=== PATIENT | female | born 1980 | race Caucasian/White ===

== ENCOUNTER 2023-09-12 17:32 | Inpatient (IN) | payer BC, SELFPAY ==
[2023-09-12 14:31] VITALS: BP 148/90
[2023-09-12 14:56] LABS: % Basophils 0.2 % (0-2); % Eosinophils 0.2 % (0-6); % Immature Granulocytes 0.3 % (0-0.5); % Lymphocytes 17.3 % (20.5-51.1); % Monocytes 7.4 % (1.7-9.3); % Neutrophils 74.6 % (42.2-75.2); Absolute Monocytes 0.4 10^3/uL (0.1-0.6); Absolute Neutrophils 4.4 10^3/uL (1.4-6.5); Hematocrit 40.7 % (37.0-47.0); Hemoglobin 14.6 g/dL (12.0-16.0); Mean Corp Hgb Conc. 35.9 g/dL (33.0-37.0); Mean Corpuscular Volume 91.9 fL (81.0-99.0); Mean Platelet Volume 10.3 fL (7.4-10.4); Nucleated Red Blood Cells % 0 %; Platelet Count 212 10^3/uL (130-400); Red Blood Cell Count 4.43 10^6/uL (4.20-5.40); Red Cell Dist. Width 12.7 % (11.5-14.5)
[2023-09-12 15:07] LABS: HCG, Serum Qualitative Screen Negative
[2023-09-12 15:25] LABS: AST (SGOT) 411 U/L (14-36); Albumin 4.4 g/dl (3.5-5.0); Alkaline Phosphatase 207 U/L (38-126); Blood Urea Nitrogen 8 mg/dl (7-17); Calcium 9.5 mg/dl (8.4-10.2); Carbon Dioxide 21 mmol/L (22-30); Chloride 106 mmol/L (98-107); Glucose 138 mg/dl (70-99); Lipase 444 U/L (23-300); Potassium 3.6 mmol/L (3.5-5.1); Sodium 136 mmol/L (135-145); Total Bilirubin 4.5 mg/dl (0.2-1.3); Total Protein 7.2 g/dl (6.3-8.2); eGFR > 60.00
[2023-09-12 15:35] LABS: ALT (SGPT) 1164 U/L (0-35)
--- NOTE | 2023-09-12 15:51 | ED.GENMED ---
History of Present Illness
General
Chief Complaint: Abdominal Pain
Source: patient
Time Seen by Provider: 09/12/23 15:37
Travel History
Have you had any contact with someone who has COVID-19?: No
Do you have any symptoms of coronavirus? Fever > 100 degrees, chills, cough, shortness of breath, sore throat, loss of taste or smell, muscle aches, or headache?: No
History of Present Illness
History of Present Illness:
42-year-old female with past medical history of factor V Leiden deficiency, lipidemia, status post cholecystectomy presenting to the emergency department at request of primary care provider who sent patient to the emergency department for continued
abdominal pain this past Tuesday with symptoms persisting throughout the weekend associated with decreased p.o. intake to solids and liquids, persistent nausea and generally feeling unwell. Patient describes the pain to be a 10 out of 10,
epigastric, radiating into her back has not had any relief with aibq-ccm-wjpmdta measures. Patient states that she has been so nauseous she has been unable to take her usual home medications including the Eliquis she takes for her factor V
deficiency. Patient was at this hospital a few weeks ago with similar and symptoms were thought to be related to gastritis ultimately sent home. She denies any fevers, chills, rigors. She does note that she was in [place] over the weekend
visiting her mother but denies any alcohol intake.
Past History
Past History
ED Past Medical History: Hypercholesterolemia, Psychiatric (anxiety on Lexapro) and Other (Factor V Leiden on eliquis)
ED Past Surgical History: Appendectomy, Cholecystectomy and Tonsilectomy
Social History
Tobacco: Non-smoker
Alcohol: None
Drug: None
Personal:
Living: with family
Review of Systems
Review of Systems
All Other Systems: ROS reviewed and negative except as documented in HPI and ROS
Phy Exam
Physical Exam
Physical Exam:
GENERAL: Alert , Tearful and appears in significant amount of pain
EYE: clear conjunctiva b/l
HEAD: NCAT
ENT: o/p clr, mmm.
CARDIAC: Regular rate and rhythm .
LUNGS: Clear breath sounds bilaterally, no acute respiratory distress, no wheezes/rales/rhonchi
ABDOMEN: Soft, Significant tenderness within the epigastrium, normoactive bowel sounds, (+)guarding with palpation of epigastrum,
NEUROLOGICAL: Alert and oriented
SKIN: Warm and dry, skin intact.
MUSCULOSKELETAL: No edema, well perfused.
PSYCH: Normal and appropriate interaction.
Scores
Heart Failure Risk
Heart Failure Risk Score: Not Applicable
Heart Score for Chest Pain Patients
STEMI patient?: Not applicable
Withdrawal Assessment of Alcohol
Withdrawal Assessment Completed?: Not applicable
Course
Orders/Labs/Results
Orders:
Orders
09/12/23 14:34
Electrocardiogram (*1) Urgent
Reason for Study: Abdominal Pain
EKG- Treatment ONCE
Test Result ONCE
09/12/23 14:40
Comprehensive Metabolic Panel Urgent
Direct Bilirubin Urgent
Comment: ADD ON
HCG, Serum Qualitative Screen Urgent
Lipase Urgent
09/12/23 14:41
Complete Blood Count/With Diff Urgent
09/12/23 15:40
US Abdomen Complete/Upper Urgent
Comment:
Reason For Exam: concern for gallstone pancreatitis, abd pain
09/12/23 15:45
HYDROmorphone [Dilaudid] 1 mg IV NOW STA
Ondansetron Injectable [Zofran] 4 mg IV NOW STA
09/12/23 15:52
Piperacillin/Tazo 3.375 Gram [Zosyn] 3.375 gram in 50 ml IV NOW
09/12/23 15:53
Type+Screen Urgent
PTT Urgent
Prothrombin Time Urgent
09/12/23 16:05
GASTROINTESTINAL CONSULT Routine
Consulting Provider: Danny Brock
Was physician already notified: Yes
Reason for consult: elevated LFTs
09/12/23 16:33
Add On- LAB Routine
Tests Added?: direct bilirubin
09/12/23 16:36
Admit/Transfer Patient As Directed
Co-Sign Provider:
Level of Care: Inpatient admission
Assign to:: Medical/Surgical
Physician / Group: [facility]
Diagnosis: elevated LFTs
Reason for Hospitalization: elevated LFTs
Expected length of stay greater than two midnights?: Yes
ELOS- Estimated Length of Stay in days: 3
I certify the patient meets the requirements for IP care: Yes
09/12/23 16:42
Code Status As Directed
Resuscitation Status: Full Code
09/12/23 17:06
MRI Abdomen [MR Abdomen W/o & W Contrast] Routine
Comment:
Reason For Exam: with mrcp
Recent pill cam endoscopy?: No
09/12/23 17:36
0.9% Sodium Chloride 1000 ml [Nss] 1,000 ml IV 125 mls/hr
HYDROmorphone [Dilaudid] 1 mg IV Q3HPRN PRN
09/12/23 17:36
MR Abdomen W/o & W Contrast Routine
Comment:
Reason For Exam: choledocholithiasis
Recent pill cam endoscopy?: No
Activity As Directed
Activity Level: With Assistance
Vital Signs As Directed
Frequency: Per unit guidelines
DX Deep Vein Thrombosis Video Routine
09/12/23 18:00
Enoxaparin Sodium [Lovenox] 40 mg SC QPM
09/12/23 22:00
Ampicillin/Sulbactam 3 G [Unasyn] 3 gm 0.9% Sodium Chloride 100 ml [Nss] 100 ml IV Q6H
09/13/23 Breakfast
NPO
Allow oral meds: Yes
Allow clear liquids: Sips of Clears
Complete Blood Count/No Diff IN AM
Comprehensive Metabolic Panel IN AM
09/14/23 06:00
Complete Blood Count/No Diff IN AM
Comprehensive Metabolic Panel IN AM
09/15/23 06:00
Complete Blood Count/No Diff IN AM
Comprehensive Metabolic Panel IN AM
09/16/23 06:00
Complete Blood Count/No Diff IN AM
Comprehensive Metabolic Panel IN AM
09/17/23 06:00
Complete Blood Count/No Diff IN AM
Comprehensive Metabolic Panel IN AM
09/18/23 06:00
Complete Blood Count/No Diff IN AM
Comprehensive Metabolic Panel IN AM
09/19/23 06:00
Complete Blood Count/No Diff IN AM
Comprehensive Metabolic Panel IN AM
09/20/23 06:00
Comprehensive Metabolic Panel IN AM
09/21/23 06:00
Comprehensive Metabolic Panel IN AM
09/22/23 06:00
Comprehensive Metabolic Panel IN AM
09/23/23 06:00
Comprehensive Metabolic Panel IN AM
09/24/23 06:00
Comprehensive Metabolic Panel IN AM
09/25/23 06:00
Comprehensive Metabolic Panel IN AM
09/26/23 06:00
Comprehensive Metabolic Panel IN AM
09/27/23 06:00
Comprehensive Metabolic Panel IN AM
09/28/23 06:00
Comprehensive Metabolic Panel IN AM
09/29/23 06:00
Comprehensive Metabolic Panel IN AM
09/30/23 06:00
Comprehensive Metabolic Panel IN AM
10/01/23 06:00
Comprehensive Metabolic Panel IN AM
10/02/23 06:00
Comprehensive Metabolic Panel IN AM
10/03/23 06:00
Comprehensive Metabolic Panel IN AM
10/04/23 06:00
Comprehensive Metabolic Panel IN AM
10/05/23 06:00
Comprehensive Metabolic Panel IN AM
10/06/23 06:00
Comprehensive Metabolic Panel IN AM
10/07/23 06:00
Comprehensive Metabolic Panel IN AM
10/08/23 06:00
Comprehensive Metabolic Panel IN AM
10/09/23 06:00
Comprehensive Metabolic Panel IN AM
10/10/23 06:00
Comprehensive Metabolic Panel IN AM
10/11/23 06:00
Comprehensive Metabolic Panel IN AM
10/12/23 06:00
Comprehensive Metabolic Panel IN AM
10/13/23 06:00
Comprehensive Metabolic Panel IN AM
10/14/23 06:00
Comprehensive Metabolic Panel IN AM
10/15/23 06:00
Comprehensive Metabolic Panel IN AM
10/16/23 06:00
Comprehensive Metabolic Panel IN AM
10/17/23 06:00
Comprehensive Metabolic Panel IN AM
10/18/23 06:00
Comprehensive Metabolic Panel IN AM
10/19/23 06:00
Comprehensive Metabolic Panel IN AM
10/20/23 06:00
Comprehensive Metabolic Panel IN AM
10/21/23 06:00
Comprehensive Metabolic Panel IN AM
10/22/23 06:00
Comprehensive Metabolic Panel IN AM
10/23/23 06:00
Comprehensive Metabolic Panel IN AM
10/24/23 06:00
Comprehensive Metabolic Panel IN AM
10/25/23 06:00
Comprehensive Metabolic Panel IN AM
10/26/23 06:00
Comprehensive Metabolic Panel IN AM
10/27/23 06:00
Comprehensive Metabolic Panel IN AM
10/28/23 06:00
Comprehensive Metabolic Panel IN AM
10/29/23 06:00
Comprehensive Metabolic Panel IN AM
10/30/23 06:00
Comprehensive Metabolic Panel IN AM
10/31/23 06:00
Comprehensive Metabolic Panel IN AM
11/01/23 06:00
Comprehensive Metabolic Panel IN AM
11/02/23 06:00
Comprehensive Metabolic Panel IN AM
11/03/23 06:00
Comprehensive Metabolic Panel IN AM
11/04/23 06:00
Comprehensive Metabolic Panel IN AM
11/05/23 06:00
Comprehensive Metabolic Panel IN AM
11/06/23 06:00
Comprehensive Metabolic Panel IN AM
11/07/23 06:00
Comprehensive Metabolic Panel IN AM
11/08/23 06:00
Comprehensive Metabolic Panel IN AM
11/09/23 06:00
Comprehensive Metabolic Panel IN AM
11/10/23 06:00
Comprehensive Metabolic Panel IN AM
11/11/23 06:00
Comprehensive Metabolic Panel IN AM
11/12/23 06:00
Comprehensive Metabolic Panel IN AM
11/13/23 06:00
Comprehensive Metabolic Panel IN AM
11/14/23 06:00
Comprehensive Metabolic Panel IN AM
11/15/23 06:00
Comprehensive Metabolic Panel IN AM
11/16/23 06:00
Comprehensive Metabolic Panel IN AM
11/17/23 06:00
Comprehensive Metabolic Panel IN AM
11/18/23 06:00
Comprehensive Metabolic Panel IN AM
11/19/23 06:00
Comprehensive Metabolic Panel IN AM
11/20/23 06:00
Comprehensive Metabolic Panel IN AM
11/21/23 06:00
Comprehensive Metabolic Panel IN AM
11/22/23 06:00
Comprehensive Metabolic Panel IN AM
11/23/23 06:00
Comprehensive Metabolic Panel IN AM
11/24/23 06:00
Comprehensive Metabolic Panel IN AM
11/25/23 06:00
Comprehensive Metabolic Panel IN AM
11/26/23 06:00
Comprehensive Metabolic Panel IN AM
11/27/23 06:00
Comprehensive Metabolic Panel IN AM
11/28/23 06:00
Comprehensive Metabolic Panel IN AM
Abnormal Lab Results
09/12/23 09/12/23
14:40 14:41
MCH 33.0 H pg
(27.0-31.0)
Absolute Lymphs (auto) 1.0 L 10^3/uL
(1.2-3.4)
Lymphocytes % 17.3 L %
(20.5-51.1)
Carbon Dioxide 21 L mmol/L
(22-30)
Glucose 138 H mg/dl
(70-99)
Total Bilirubin 4.5 H mg/dl
(0.2-1.3)
Direct Bilirubin 3.1 H mg/dl
(0.0-0.4)
AST 411 H U/L
(14-36)
ALT 1164 H* U/L
(0-35)
Alkaline Phosphatase 207 H U/L
(38-126)
Lipase 444 H U/L
(23-300)
09/12/23 14:41
09/12/23 14:40
Vital Signs
Initial and Last Documented VS:
Initial Vital Signs
Temp Pulse Resp BP Pulse Ox
98.2 F 66 16 148/90 98
09/12/23 14:31 09/12/23 14:31 09/12/23 14:31 09/12/23 14:31 09/12/23 14:31
Last Documented Vital Signs
Temp Pulse Resp BP Pulse Ox
98.2 F 53 18 135/74 99
09/12/23 18:46 09/12/23 18:46 09/12/23 18:46 09/12/23 18:46 09/12/23 18:46
MDM/Problems Addressed
Differential Diagnosis Includes:
Common bile duct stone, pancreatitis, GERD, gastritis, duodenitis
MDM/Problems Addressed:
42-year-old female presenting emergency ferment at request of primary care physician due to continued abdominal pain since this past Tuesday.'s were ordered from triage and reveal significant transaminitis with her T. bili being 4.5, AST 411, ALT
1164, alkaline phosphatase 207 and lipase 444. This is a significant change from labs that were done a little over 1 month ago. Patient will be sent for stat ultrasound. I notified both hospitalist team and GI. GI will place an order for MRCP to
be done tomorrow. Dilaudid and Zofran ordered for symptomatic relief.
*Radiology
Radiology exam reviewed: radiology read reviewed
*Pulse Oximetry
Patient hypoxic: no
*Critical Care Note
Total Time (30-74mins, 75-104mins- exclusive of procedures): Not Applicable
Data Reviewed
Review of Other/Old Records Reveals: Labs, Records and Radiology Studies
Source: patient
Patient Management
Discussion with other providers: Hospitalist and [facility]
Escalation/DeEscalation of care consider admission/obs:
Hospitalist accepts for continued evaluation and treatment
ED Attending Note
-
Portions of this chart may have been created with voice recognition software.� Occasional wrong word or��sound alike� substitutions may have occurred due to the inherent limitations of voice recognition software.
Discharge Plan
Departure
Patient Disposition: Admit
Date of Disposition: 09/12/23
Time of Disposition: 15:51
Presentation/result/management discussed w/ accepting MD/DO: Hospitalist
Discharge Problem:
Acute pancreatitis, Transaminitis
Interventions
Interventions:
*Risk Screen - Suicide Last Done: 09/12/23 14:31
*General Assessment Last Done: 09/12/23 14:31
*Neglect/Abuse Screening Last Done: 09/12/23 14:31
*Nursing Disposition Last Done: 09/12/23 18:29
Discharge Date and Time
Discharge Date/Time: 09/12/23 18:30
[2023-09-12] MEDS: DILAUDID 1 MG IV ×3 (15:54→23:09)
[2023-09-12] MEDS: ZOFRAN 4 MG IV (15:54)
--- NOTE | 2023-09-12 16:07 | HPS.HSE ---
Family Physician
-
Family Physician: * NONE
Chief Complaint
-
Abdominal pain
History of Present Illness
42 y/o F with PMHx:
Factor V Leiden mutation with resulting DVT x 2
Cholecystectomy 2020
Who presents with a chief complaint of abdominal pain. Patient reports right upper quadrant abdominal pain that came on fairly suddenly about 3 days ago. She had associated nausea and poor oral intake. Denies vomiting. She has had occasional
headaches. She denies any fever. Denies chest pain, shortness of breath, rash, dysuria, focal neurological deficit, visual disturbances, neck stiffness.
Medical History
Past Medical History
Past Medical History: Reports Other (as per HPI)
Past Surgical History: Reports Cholecystectomy (2020 at )
Social History
Tobacco: Non-smoker
Alcohol: None
Drug: None
Family History
Family History: Not pertinent
Allergies / Home Medications
Allergies reflects when Allergies were last updated in [facility]
Home Medications with original date entered in [facility]
Allergy/Medication List:
Allergies
Allergy/AdvReac Type Severity Reaction Status Date / Time
brompheniramine maleate Allergy Hives Verified 09/12/23 14:31
[From [employer] Allergy]
phenylpropanolamine HCl Allergy Hives Verified 09/12/23 14:31
[From [employer] Allergy]
Home Medications
apixaban 5 mg tablet (Eliquis) 5 mg PO BID 07/23/20
escitalopram oxalate 20 mg tablet 20 mg PO DAILY 07/23/20
nitrofurantoin monohydrate/macrocrystals 100 mg capsule 100 mg PO PRN PRN UTI 07/23/20
Fluocinolone 0.01% Scalp Oil 5 drops PRN PRN affected ear- ezcema 07/28/20
hydrocodone 5 mg-acetaminophen 325 mg tablet 1 - 2 tab PO Q4HPRN PRN moderate to severe pain ##20 07/28/20
omeprazole 10 mg capsule,delayed release (Prilosec) 10 mg PO DAILY PRN gerd 07/28/20
pantoprazole 40 mg tablet,delayed release (Protonix) 40 mg PO DAILY #30 tabs 10/07/22
pantoprazole 40 mg tablet,delayed release 40 mg PO DAILY #30 tabs 08/05/23
sucralfate 100 mg/mL oral suspension 10 ml PO ACHS 2 weeks #560 mL 08/05/23
cholecalciferol (vitamin D3) 25 mcg (1,000 unit) tablet (Vitamin D3) 25 mcg PO DAILY 09/12/23
cyanocobalamin (vitamin B-12) 1,000 mcg tablet 1,000 mcg PO DAILY 09/12/23
hyoscyamine sulfate 0.125 mg sublingual tablet 0.125 mg PO TIDPRN PRN spasms 09/12/23
omega 0-sgt-han-fish oil 1,000 mg (120 mg-180 mg) capsule (Fish Oil) 1 cap PO DAILY 09/12/23
ondansetron HCl 4 mg tablet 4 mg PO TIDPRN PRN nausea 09/12/23
Review of Systems
-
History Source: Patient
A 12 point ROS was completed and negative except as noted: Yes
Physical Exam
Vital Signs
Vital Signs
Temp Pulse Resp BP Pulse Ox
98.2 F 66 16 148/90 98
09/12/23 14:31 09/12/23 14:31 09/12/23 14:31 09/12/23 14:31 09/12/23 14:31
Physical Exam
General: Other (.)
Laboratory Results
-
09/12/23 14:41
09/12/23 14:40
Laboratory Results
Total Bilirubin 4.5 mg/dl (0.2-1.3) H 09/12/23 14:40
AST 411 U/L (14-36) H 09/12/23 14:40
ALT 1164 U/L (0-35) H* 09/12/23 14:40
Alkaline Phosphatase 207 U/L (38-126) H 09/12/23 14:40
Lipase 444 U/L (23-300) H 09/12/23 14:40
Impression/Plan
-
Gen: NAD, AAOx3.
Eyes: EOMI, PERRLA, no scleral icterus.
Neck: supple.
CV: RRR, +S1/S2, no m/r/g.
Resp: CTAB, no rales, wheezes, or rhonchi.
Abd: +BS, soft, right upper quadrant tenderness to light palpation without guarding, ND
Skin: No rashes.
Neuro: CN 2-12 intact, non-focal.
Psych: Normal mood and affect.
CT A/P w/IV:
1. � Mild diffuse hepatic steatosis.
2. � Previous cholecystectomy and appendectomy.
3. � Mild colonic diverticulosis.
4. � Small left ovarian cysts.
Elevated LFTs:
-Cholestatic and hepatocellular pattern
-given Zosyn in ER. Afebrile, no leukocytosis. Cont with Unasyn for now.
-check MRI Abd with MRCP protocol
-c/s GI
Factor V Leiden mutation:
-hold Eliquis pending further eval as pt may need ERCP
FULL/Lovenox
[2023-09-12 16:12] LABS: INR 1.03; PT 13.4 Sec (11.4-14.6)
[2023-09-12 16:23] VITALS: BMI 34.7
--- NOTE | 2023-09-12 16:23 | CON.GI ---
Addendum entered and electronically signed by Annemarie Winston NP 09/13/23 09:21:
On Unasyn per hosptialist. Will review with Dr. Randhawa regarding need for this. Continue for now.
Original Note:
Consultation
-
Date/Time Consultation Requested: 09/12/23 @15:32
Date/Time Consultation Performed: 09/13/23 @ 08:15
Requesting Provider: Dr. Ibrahim
Performing Provider: AURELIA Lu; Dr. Lexie Randhawa
Reason for Consultation: abnormal LFT's, prior CCY
Medical History
Chief Complaint / HPI
Chief Complaint: abdominal pain
History of Present Illness:
The patient is a 42-year-old female with a past medical history significant for factor V Leiden on Eliquis, anxiety, history of prior cholecystectomy 2020, GERD, who presented to the emergency room with complaints of abdominal pain. We are being
asked to evaluate for abnormal LFTs and concern for choledocholithiasis. She was seen by Dr. Roth in the office in March for reflux after evaluation in the emergency room prior to that visit. It was thought her symptoms were secondary to
gastritis or duodenitis and she was discharged home on Protonix. She had an upper endoscopy with Dr. Roth which showed gastritis otherwise was unrevealing. It was advised that if her pain continued she would need an MRCP for further evaluation
with her history of cholecystectomy. It is noted she had a CT scan done in July which showed ' mild diffuse hepatic steatosis, evidence of prior cholecystectomy and appendectomy, mild colonic diverticulosis, and a small left ovarian cyst.' At
that time there was no abnormal biliary dilation. The patient notes that she has had intermittent episodes similar to this in the past, most recently in July and back in April. She had recently been traveling in [place] when she developed
discomfort in the middle of her abdomen on Tuesday. She reports that the discomfort did taper off but then came back and was constant. She notes radiation of the pain to her back as well with associated nausea and chills. She denies any fevers.
This discomfort is similar to when she had her gallbladder removed but also more severe in nature. She notes that she has had a significantly decreased appetite as of Tuesday due to her ongoing symptoms. She has lost weight recently but reports
this is intentional as she has been on low-fat diet. She notes regular bowel movements at baseline but has not had 1 in several days due to her loss of appetite. She otherwise denies any chest pain, shortness of breath, odynophagia, dysphagia,
melena, hematochezia, or hematemesis. She denies any history of liver disease. She notes a family history of her father who had colon cancer in his 40s. She denies any use of NSAIDs. She is a non-smoker. She denies significant alcohol use.
Routine labs on admission showed total bilirubin 4.5, AST 411, ALT 1164, alk phos 207, lipase 444, BUN 8, creatinine 0.7, sodium 136, potassium 3.6, WBC 6.0, hemoglobin 14.6, platelets 212,000. Ultrasound of the abdomen was done which did show
biliary ductal dilation with a CBD of 1.1 cm concerning for stone. MRI with MRCP was ordered and is pending this morning. LFTs are downtrending. She was made n.p.o. and admitted for further evaluation by GI.
Past Medical History
Past Medical History: GERD, Psychiatric (Anxiety) and Other (Factor V Leiden on Eliquis)
Past Surgical History: Appendectomy, Cholecystectomy and Tonsilectomy
Social History
Tobacco: Non-Smoker
Alcohol: None
Drug: None
Personal:
Living: With Family
Family History
Family History: Cancer (Father who had colon cancer in his 40s)
Allergies / Home Medications
Allergy/AdvReac Type Severity Reaction Status Date / Time
brompheniramine maleate Allergy Hives Verified 09/12/23 14:31
[From Dimetapp Allergy]
phenylpropanolamine HCl Allergy Hives Verified 09/12/23 14:31
[From Dimetapp Allergy]
Medication Instructions Recorded
apixaban 5 mg tablet (Eliquis) 5 mg PO BID 07/23/20
escitalopram oxalate 20 mg tablet 20 mg PO DAILY 07/23/20
nitrofurantoin 100 mg PO PRN PRN UTI 07/23/20
monohydrate/macrocrystals 100 mg
capsule
Fluocinolone 0.01% Scalp Oil 5 drops PRN PRN affected ear- 07/28/20
ezcema
hydrocodone 5 mg-acetaminophen 325 1 - 2 tab PO Q4HPRN PRN moderate 07/28/20
mg tablet to severe pain ##20
omeprazole 10 mg capsule,delayed 10 mg PO DAILY PRN gerd 07/28/20
release (Prilosec)
pantoprazole 40 mg tablet,delayed 40 mg PO DAILY #30 tabs 10/07/22
release (Protonix)
pantoprazole 40 mg tablet,delayed 40 mg PO DAILY #30 tabs 08/05/23
release
sucralfate 100 mg/mL oral 10 ml PO ACHS 2 weeks #560 mL 08/05/23
suspension
Review of Systems
-
History Source: Patient
Constitutional: Reports Chills
EENT: Reports No Symptoms
Respiratory: Reports No Symptoms
Cardiac: Reports No Symptoms
Abdomen/GI: Reports Abdominal Pain and Nausea
: Reports No Symptoms
Musculoskeletal: Reports No Symptoms
Skin: Reports No Symptoms
Neurological: Reports No Symptoms
Vital Signs
Temp Pulse Resp BP Pulse Ox
98.2 F 66 16 148/90 98
09/12/23 14:31 09/12/23 14:31 09/12/23 14:31 09/12/23 14:31 09/12/23 14:31
Physical Exam
Exam
General: Well Developed, Well Nourished and Other (mild discomfort due to pain)
HEENT: Normocephalic, Anicteric and Atraumatic
Respiratory: Clear
Cardiac: S1/S2 and Regular Rhythm
Breast: Deferred by me
GI: Soft, Normal Bowel Sounds, Tender (upper abdomen, mid epigastric area) and Distended (mildly but soft)
Musculoskeletal: No Edema
Skin: Warm and Dry
Neuro: Awake and Alert
Psych: Calm
Results
WBC 6.0 10^3/uL (4.8-10.8) 09/12/23 14:41
Hgb 14.6 g/dL (12.0-16.0) 09/12/23 14:41
Hct 40.7 % (37.0-47.0) 09/12/23 14:41
MCV 91.9 fL (81.0-99.0) 09/12/23 14:41
Plt Count 212 10^3/uL (130-400) 09/12/23 14:41
Absolute Neuts (auto) 4.4 10^3/uL (1.4-6.5) 09/12/23 14:41
PT 13.4 Sec (11.4-14.6) 09/12/23 15:53
INR 1.03 09/12/23 15:53
APTT 27.0 Sec (23.4-35.0) 09/12/23 15:53
Sodium 136 mmol/L (135-145) 09/12/23 14:40
Potassium 3.6 mmol/L (3.5-5.1) 09/12/23 14:40
Chloride 106 mmol/L (98-107) 09/12/23 14:40
Carbon Dioxide 21 mmol/L (22-30) L 09/12/23 14:40
BUN 8 mg/dl (7-17) 09/12/23 14:40
Creatinine 0.7 mg/dL (0.6-1.0) 09/12/23 14:40
Calcium 9.5 mg/dl (8.4-10.2) 09/12/23 14:40
Total Bilirubin 4.5 mg/dl (0.2-1.3) H 09/12/23 14:40
AST 411 U/L (14-36) H 09/12/23 14:40
ALT 1164 U/L (0-35) H* 09/12/23 14:40
Alkaline Phosphatase 207 U/L (38-126) H 09/12/23 14:40
Lipase 444 U/L (23-300) H 09/12/23 14:40
Diagnostic Image Results:
09/12/2023 US abdomen: IMPRESSION:
1. � Moderate biliary dilatation which has increased since 08/05/2023 suspicious for a distal biliary obstruction.
2. � Previous cholecystectomy.
08/05/2023 CT A/P w/IV contrast only: IMPRESSION:
1. � Mild diffuse hepatic steatosis.
2. � Previous cholecystectomy and appendectomy.
3. � Mild colonic diverticulosis.
4. � Small left ovarian cysts.
Prior GI Procedures:
EGD: 05/06/2023 Dr. Roth: �Normal esophagus. Small hiatal hernia. A single gastric polyp. Biopsied. Normal examined duodenum. Biopsied. Biopsies were taken with a cold forceps for Helicobacter pylori testing. If pain recurs may need MRCP. Bx
showing mild chronic inactive gastritis. Neg for H pylori.
04/23/2011 Dr. Burgess: Z-line regular, 39 cm from the incisors. Biopsied. Bile gastritis. This was biopsied. Normal 2nd part of the duodenum. Bx negative.
Colonoscopy: 09/21/2021 Dr. Burgess: �Diverticulosis in the sigmoid colon. The examination was otherwise normal. No specimens collected.
05/21/2016 Dr. Burgess: One 3 mm hyperplastic polyp at the recto-sigmoid colon. Resected and retrieved. The examination was otherwise normal.
2010, Dr. Burgess: One 3 mm adenomatous polyp in the cecum. Resected and retrieved. The examination was otherwise normal.
Assessment / Plan
-
The patient is a 42-year-old female with a past medical history significant for factor V Leiden on Eliquis, anxiety, history of prior cholecystectomy 2020, GERD, who presented to the emergency room with complaints of abdominal pain. We are being
asked to evaluate for abnormal LFTs and concern for choledocholithiasis. She has a history of prior cholecystectomy in 2020, now with similar symptoms from that time but more severe. She notes several similar episodes in July and April. Had
recently been traveling in [place] with onset of pain, which has been constant since Tuesday. On admission with significantly elevated LFTs. Ultrasound showing concern for choledocholithiasis with dilated CBD 1.1 cm. MRI/MRCP is pending this
morning. She continues with pain, which is somewhat controlled with IV pain medications. Currently NPO. LFTs are downtrending
Problem list:
-abdominal pain
-biliary ductal dilation on ultrasound imaging, CBD 1.1 cm
-hx Factor V Liden on Eliquis
-hx CCY 2020
-GERD
-anxiety
Recommendations:
-Etiology of abdominal pain/abnormal LFT's likely 2/2 choledocholithiasis. US showing CBD 1.1cm (previously 5mm) with significantly elevated LFT's.
-Agree with MRI with MRCP, pending results may need ERCP today versus tomorrow
-Continue to hold Eliquis, her last dose was reportedly on Tuesday morning
-PRN analgesics
-IV fluids as per hospitalist while n.p.o.
-Trend LFTs
-Continue n.p.o. status
-Will follow
Data Reviewed
-
Old Records: Reviewed
-
-
Thank you for consultation and allowing me to participate in the patient's care. Please call the training personnel supervisor GI physician during the after hours with any questions or concerns.
[2023-09-12] MEDS: ZOSYN 50 IV (16:24)
[2023-09-12 17:20] LABS: Direct Bilirubin 3.1 mg/dl (0.0-0.4)
[2023-09-12] MEDS: NSS 1000 IV ×2 (18:34→23:36)
[2023-09-12] MEDS: NSS (PRESERVATIVE FREE) 10 ML IV (18:41)
[2023-09-12] MEDS: PROTONIX IV 40 MG IV (18:41)
[2023-09-12] MEDS: LOVENOX 40 MG SC (18:42)
[2023-09-12 18:46] VITALS: BP 135/74; BMI 33.8
[2023-09-12] MEDS: UNASYN IV (21:15)
[2023-09-12] MEDS: COMPAZINE 5 MG IV (23:36)
[2023-09-12 23:41] VITALS: BP 115/65
[2023-09-13] MEDS: UNASYN IV ×4 (03:57→21:45)
[2023-09-13 07:53] LABS: Hematocrit 38.3 % (37.0-47.0); Hemoglobin 13.1 g/dL (12.0-16.0); Mean Corp Hgb Conc. 34.2 g/dL (33.0-37.0); Mean Corpuscular Hgb 32.4 pg (27.0-31.0); Mean Corpuscular Volume 94.8 fL (81.0-99.0); Mean Platelet Volume 10.3 fL (7.4-10.4); Platelet Count 182 10^3/uL (130-400); Red Blood Cell Count 4.04 10^6/uL (4.20-5.40); White Blood Cell Count 4.6 10^3/uL (4.8-10.8)
[2023-09-13 07:55] VITALS: BP 120/78
[2023-09-13] MEDS: PROTONIX IV 40 MG IV (08:23)
[2023-09-13] MEDS: NSS (PRESERVATIVE FREE) 10 ML IV (08:24)
[2023-09-13] MEDS: DILAUDID 1 MG IV ×2 (08:24→12:51)
[2023-09-13 08:31] LABS: AST (SGOT) 188 U/L (14-36); Albumin 3.6 g/dl (3.5-5.0); Alkaline Phosphatase 190 U/L (38-126); Blood Urea Nitrogen 8 mg/dl (7-17); Calcium 8.8 mg/dl (8.4-10.2); Carbon Dioxide 23 mmol/L (22-30); Chloride 109 mmol/L (98-107); Estimated Creatinine Clearance 124 ml/min; Glucose 103 mg/dl (70-99); Potassium 3.8 mmol/L (3.5-5.1); Sodium 139 mmol/L (135-145); Total Bilirubin 2.4 mg/dl (0.2-1.3); Total Protein 6.1 g/dl (6.3-8.2); eGFR > 60.00
[2023-09-13 08:41] LABS: ALT (SGPT) 858 U/L (0-35)
--- NOTE | 2023-09-13 09:15 | W.PN.HOSP.TC ---
Today's Communication/Plan
-
see bold
Assessment / Plan
Assessment / Plan
Gen: NAD, AAOx3.
Eyes: EOMI, PERRLA, no scleral icterus.
Neck: supple.
CV: remains RRR, +S1/S2, no m/r/g.
Resp: remains CTAB, no rales, wheezes, or rhonchi.
Abd: remains +BS, soft, right upper quadrant tenderness to light palpation without guarding, ND
Skin: No rashes.
Neuro: CN 2-12 intact, non-focal.
Psych: Normal mood and affect.
Abd U/S:
1. � Moderate biliary dilatation which has increased since 08/05/2023 suspicious for a distal biliary obstruction.
2. � Previous cholecystectomy.
CT A/P w/IV:
1. � Mild diffuse hepatic steatosis.
2. � Previous cholecystectomy and appendectomy.
3. � Mild colonic diverticulosis.
4. � Small left ovarian cysts.
Elevated LFTs:
-Cholestatic and hepatocellular pattern, concern for choledocholithiasis
-given Zosyn in ER. Afebrile, no leukocytosis. Cont with Unasyn for now.
-check MRI Abd with MRCP protocol
-GI following
Factor V Leiden mutation:
-hold Eliquis pending further eval as pt may need ERCP
Patient's updated at bedside.
FULL/Lovenox
Anticipated Discharge: 24 - 48 hours
Subjective/Interval History
-
Date of Service: September 13, 2023
Overall right upper quadrant pain improved with IV Dilaudid.
Objective Data
-
Labs:
Laboratory Results
09/13/23
07:32
WBC 4.6 L
Hgb 13.1
Hct 38.3
Plt Count 182
Sodium 139
Potassium 3.8
Chloride 109 H
Carbon Dioxide 23
BUN 8
Creatinine 0.7
Glucose 103 H
Calcium 8.8
Total Bilirubin 2.4 H
AST 188 H
ALT 858 H*
Alkaline Phosphatase 190 H
Vital Signs:
Vital Signs
Temp Pulse Resp BP Pulse Ox
98.3 F 54 18 120/78 95
09/13/23 07:55 09/13/23 07:55 09/13/23 07:55 09/13/23 07:55 09/13/23 07:55
I&O
09/12/23 09/13/23 09/14/23
06:59 06:59 06:59
Intake Total 1490 / 1490
Output Total 400 / 400
Balance 1090 / 1090
[2023-09-13] MEDS: COMPAZINE 5 MG IV ×2 (09:53→17:05)
[2023-09-13] MEDS: NSS 1000 IV ×2 (09:55→19:48)
[2023-09-13 15:30] VITALS: BP 123/72
--- NOTE | 2023-09-13 15:54 | CM ---
CM following re: d/c planning
Chart reviewed
CM met with the patient at bedside; IA completed
Pt states she resides with her spouse, and two sons aged 14& 16yrs old in a 1SH with 2STE
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
Pt has no past SNF hx, has no recent VN hx, & the only DME owned is a pair of crutches
Pt does have prescription coverage and rx's are filled at [facility] on [facility]
Pt PCP-Dr. Martha Howe
No needs are anticipated once stable
CM will continue to follow patient progress and assist with any needs at d/c as indicated
PLAN; d/c home no needs anticipated
[2023-09-13 19:15] VITALS: BP 138/72
[2023-09-13] MEDS: LOVENOX 40 MG SC (19:19)
[2023-09-13 20:14] VITALS: BP 113/70
[2023-09-13 21:15] VITALS: BP 131/59
[2023-09-13 23:45] VITALS: BP 111/62
--- NOTE | 2023-09-14 04:28 | DOWNTIME ---
There was a Satiety Client Photographer Portrait Downtime on 09/14/2023 from 0111 to 09/14/2023 at 0405. Downtime documentation of patient's care, including medication administrations, has been reconciled in the electronic record per guidelines. Refer to the
patient's paper chart under the miscellaneous tab to see printed paper medication records and downtime forms.
[2023-09-14] MEDS: UNASYN IV ×2 (04:52→09:47)
[2023-09-14] MEDS: NSS 1000 IV (06:44)
[2023-09-14 07:15] VITALS: BP 138/76
[2023-09-14 07:49] LABS: Hematocrit 36.8 % (37.0-47.0); Hemoglobin 12.6 g/dL (12.0-16.0); Mean Corp Hgb Conc. 34.2 g/dL (33.0-37.0); Mean Corpuscular Hgb 32.6 pg (27.0-31.0); Mean Corpuscular Volume 95.3 fL (81.0-99.0); Mean Platelet Volume 10.4 fL (7.4-10.4); Platelet Count 168 10^3/uL (130-400); Red Blood Cell Count 3.86 10^6/uL (4.20-5.40); Red Cell Dist. Width 12.8 % (11.5-14.5); White Blood Cell Count 4.9 10^3/uL (4.8-10.8)
--- NOTE | 2023-09-14 08:08 | W.PN.HOSP.TC ---
Today's Communication/Plan
-
see bold
Assessment / Plan
Assessment / Plan
Gen: NAD, AAOx3.
Eyes: EOMI, PERRLA, no scleral icterus.
Neck: supple.
CV: continues to remain RRR, +S1/S2, no m/r/g.
Resp: continues to remain CTAB, no rales, wheezes, or rhonchi.
Abd: +BS, soft, right upper quadrant tenderness to moderate palpation without guarding, ND
Skin: No rashes.
Neuro: CN 2-12 intact, non-focal.
Psych: Normal mood and affect.
Abd U/S:
1. � Moderate biliary dilatation which has increased since 08/05/2023 suspicious for a distal biliary obstruction.
2. � Previous cholecystectomy.
CT A/P w/IV:
1. � Mild diffuse hepatic steatosis.
2. � Previous cholecystectomy and appendectomy.
3. � Mild colonic diverticulosis.
4. � Small left ovarian cysts.
MRI Abd/MRCP 09/13/23:
1. � Mild circumferential wall enhancement of the common hepatic and common bile ducts with mild surrounding inflammation suspicious for ACUTE CHOLANGITIS. Mild intrahepatic biliary dilatation. No evidence for choledocholithiasis or obstruction of
the common bile duct.
2. � Previous cholecystectomy.
3. � Multiple bilateral parapelvic renal cysts.
09/13/23 EUS: There was no sign of significant pathology in the pancreatic head. There was no sign of significant pathology in the ampulla.
Elevated LFTs:
-Cholestatic and hepatocellular pattern. Initially there was concern for choledocholithiasis. MRI abdomen/MRCP as above and without choledocholithiasis. There were findings suspicious for acute cholangitis. Endoscopic ultrasound as above without
significant pathology/findings.
-given Zosyn in ER. Afebrile, no leukocytosis. Cont with Unasyn for now. Will c/s ID for opinion.
-advanced to clears
-GI following
-Check viral and autoimmune liver markers
Factor V Leiden mutation:
-restart Eliquis
FULL/Lovenox
Anticipated Discharge: Within 24 hours
Subjective/Interval History
-
Date of Service: September 14, 2023
Abdominal pain improving.
Objective Data
-
Labs:
Laboratory Results
09/14/23
07:09
WBC 4.9
Hgb 12.6
Hct 36.8 L
Plt Count 168
Sodium Pending
Potassium Pending
Chloride Pending
Carbon Dioxide Pending
BUN Pending
Creatinine Pending
Glucose Pending
Calcium Pending
Total Bilirubin Pending
AST Pending
ALT Pending
Alkaline Phosphatase Pending
Vital Signs:
Vital Signs
Temp Pulse Resp BP Pulse Ox
98.5 F 45 16 138/76 99
09/14/23 07:15 09/14/23 07:15 09/14/23 07:15 09/14/23 07:15 09/14/23 07:15
I&O
09/13/23 09/14/23 09/15/23
06:59 06:59 06:59
Intake Total 1490 / 1490 2099
Output Total 400 / 400
Balance 1090 / 1090 2099
[2023-09-14 08:28] LABS: ALT (SGPT) 525 U/L (0-35); AST (SGOT) 78 U/L (14-36); Albumin 3.3 g/dl (3.5-5.0); Alkaline Phosphatase 164 U/L (38-126); Blood Urea Nitrogen 10 mg/dl (7-17); Calcium 8.7 mg/dl (8.4-10.2); Carbon Dioxide 20 mmol/L (22-30); Chloride 111 mmol/L (98-107); Estimated Creatinine Clearance > 125 ml/min; Glucose 76 mg/dl (70-99); Potassium 3.9 mmol/L (3.5-5.1); Sodium 138 mmol/L (135-145); Total Bilirubin 1.3 mg/dl (0.2-1.3); Total Protein 5.6 g/dl (6.3-8.2); eGFR > 60.00
[2023-09-14] MEDS: ELIQUIS 5 MG PO ×2 (09:46→20:55)
[2023-09-14] MEDS: PROTONIX IV 40 MG IV (09:46)
[2023-09-14] MEDS: NSS (PRESERVATIVE FREE) 10 ML IV (09:46)
--- NOTE | 2023-09-14 10:30 | W.PN.GI.CBS2 ---
Addendum entered and electronically signed by Lexie Koenig Do, MD 09/14/23 15:27:
I saw and examined the patient.
The RESOLUTION AGENT's note was reviewed and I agree with the note.
Comment: Abd pain improving. Tolerating FLD. Vitals stable. AF. obese mild TTP RUQ. Labs with LFTs downtrending.
Recommendations
- EUS neg for choledocholithiasis. Unclear if passed sludge vs other cause
- Viral hepatitis serologies and hereditary liver workup
- Adv to low fat diet
- If LFTs continue to improve anticipate d/c home tomorrow from GI perspective
- Ok to resume anticoagulation today as no indication for ERCP
Will follow with you
Original Note:
Today's Communication / Plan
-
Trend LFT's. Advance diet. Add underlying liver labs (RMAA, AMA, SMA, hepatitis serologies).
Assessment / Plan
-
The patient is a 42-year-old female with a past medical history significant for factor V Leiden on Eliquis, anxiety, history of prior cholecystectomy 2020, GERD, who presented to the emergency room with complaints of abdominal pain. We are being
asked to evaluate for abnormal LFTs and concern for choledocholithiasis. She has a history of prior cholecystectomy in 2020, now with similar symptoms from that time but more severe. She notes several similar episodes in July and April. Had
recently been traveling in [place] with onset of pain, which has been constant since Tuesday. On admission with significantly elevated LFTs. Ultrasound showing concern for choledocholithiasis with dilated CBD 1.1 cm. MRI/MRCP as below. She
continues with pain, which is somewhat controlled with IV pain medications. LFTs are downtrending.
09/13/23 EUS, Dr. Bates: No significant pathology identified in the pancreatic head or ampulla. No evidence of choledocholithiasis. There did appear to be thickening of the common bile duct. No specimens collected.
Problem list:
-abdominal pain
-Abnormal LFTs
-biliary ductal dilation on ultrasound imaging, CBD 1.1 cm, negative EUS
-hx Factor V Liden on Eliquis
-hx CCY 2020
-GERD
-anxiety
Recommendations:
-Etiology of abdominal pain/abnormal LFT's unclear at this time. MRI imaging showing ?acute cholangitis. EUS done on 09/13 was negative for choledocho or other abnormalities. Possible underlying liver/autoimmune component?
-Will check hepatitis serologies, RAMA, AMA, and SMA, consider autoimmune hepatitis versus PBC versus PSC versus other.
-PRN analgesics, limit use as able
-Encourage mobilization
-Full liquid diet, ADAT to low fat
-Trend LFTs
-Further liver work-up outpatient. Will need Fibroscan for fatty liver as well.
-Will follow
Subjective
Subjective
Date of Service: September 14, 2023
The patient was seen and examined at the bedside. She reports her pain is improving. She notes some passing of gas but no bowel movement. She feels her abdomen is still bloated/distended. She denies any further nausea or vomiting and is
tolerating clear liquid diet.
Objective
Data Reviewed
Laboratory Data:
Laboratory Results
09/14/23 07:09
09/14/23 07:09
Laboratory Results
PT 13.4 Sec (11.4-14.6) 09/12/23 15:53
INR 1.03 09/12/23 15:53
APTT 27.0 Sec (23.4-35.0) 09/12/23 15:53
Total Bilirubin 1.3 mg/dl (0.2-1.3) D 09/14/23 07:09
AST 78 U/L (14-36) H 09/14/23 07:09
ALT 525 U/L (0-35) H* 09/14/23 07:09
Alkaline Phosphatase 164 U/L (38-126) H 09/14/23 07:09
Lipase 444 U/L (23-300) H 09/12/23 14:40
Vital Signs and I&O:
Vital Signs
Temp Pulse Resp BP Pulse Ox
98.5 F 45 16 138/76 99
09/14/23 07:15 09/14/23 07:15 09/14/23 07:15 09/14/23 07:15 09/14/23 07:15
I&O
09/13/23 09/14/23 09/15/23
06:59 06:59 06:59
Intake Total 1490 / 1490 2099
Output Total 400 / 400
Balance 1090 / 1090 2099
Physical Exam
Physical Exam
HEENT: Anicteric
Cardiology: S1 and S2 (Regular rate/rhythm)
Pulmonary: Clear
GI: Soft, Distended, Tender (Upper abdomen) and Normal Bowel Sounds
Extremities: No Edema
[2023-09-14] MEDS: NSS IV (12:25)
--- NOTE | 2023-09-14 13:00 | CON.ID ---
Consultation
-
Date/Time Consultation Requested: 09/14/23 8:11
Date/Time Consultation Performed: 09/14/23 13:01
Requesting Provider: Dr Burr
Performing Provider: Dr Tello
Reason for Consultation: acute cholangitis
Chief Complaint / Past History
Chief Complaint
RUQ abdominal pain
History of Present Illness
Ms Mehta is a 42 year old female with history of cholecystectomy 2020, factor 5 leiden mutation who presented here 09/12 for RUQ pain, suddent onset x3 day, nausea, poor oral intake. No vomiting. No fevers, chest pain, shortness of breath, rash,
dysuria or neck stiffness
Since arrival here she has been afebrile, bp stable, wbc on arrival 6.0 on 4.9, hgb 12.6, plt 168, no left shift on arrival and eos were present, cr 0.6, t bili on arrival 4.5 now 1.3, d bili 3.1, ast 411 now 78, alt 1164 now 525, alk phos 207 now
164, ehp panel pending, abd MRI: acute cholangitis, no choledocholithiasis, abd US 09/12: Moderate biliary dilatation which has increased since 08/05/2023 suspicious for a distal biliary obstruction, no cultures done thus far, 09/13/23 EUS, Dr. Bates:�No
significant pathology identified in the pancreatic head or ampulla.� No evidence of choledocholithiasis.� There did appear to be thickening of the common bile duct.� No specimens collected. Currently on unaHachikon, ID is consulted for assistance with
management.
Past History
Additional Past Medical History:
Factor V Leiden mutation with resulting DVT x 2
Cholecystectomy 2020
Additional Past Surgical History:
Cholecystectomy (2020 at )
Allergy History:
brompheniramine maleate [From Dimetapp Allergy] Allergy (Verified 09/12/23 14:31)
Hives
phenylpropanolamine HCl [From Dimetapp Allergy] Allergy (Verified 09/12/23 14:31)
Hives
Medications Reviewed: Yes
Social History
Tobacco: Non-Smoker
Alcohol: None
Drug: None
Family History
Family History: Not Pertinent
Review of Systems
Review of Systems
General: Negative Fever or Chills
All systems: All other systems were reviewed and were negative
Vital Signs
Temp Pulse Resp BP Pulse Ox
98.5 F 45 16 138/76 99
09/14/23 07:15 09/14/23 07:15 09/14/23 07:15 09/14/23 07:15 09/14/23 09:00
Physical Exam
Physical Exam
Constitutional: No Acute Distress
Cardiovascular: Regular Rate and S1/S2; Negative Murmur or Rub
Pulmonary: Clear and Symmetric; Negative Wheezes, Rales or Rhonchi
Gastrointestinal: Soft, Tender (minimal epigastric tenderness), Non Distended and Normal Bowel Sounds
Skin: Warm and Dry; Negative Rash or Jaundice
Lab / Diagnostic Study Results
09/14/23 07:09
09/14/23 07:09
Abs Immat Gran (auto) 0.0 10^3/uL (0-0.05) 09/12/23 14:41
Absolute Neuts (auto) 4.4 10^3/uL (1.4-6.5) 09/12/23 14:41
Absolute Lymphs (auto) 1.0 10^3/uL (1.2-3.4) L 09/12/23 14:41
Absolute Monos (auto) 0.4 10^3/uL (0.1-0.6) 09/12/23 14:41
Absolute Basos (auto) 0.0 10^3/uL (0-0.2) 09/12/23 14:41
Immature Gran % 0.3 % (0-0.5) 09/12/23 14:41
Neutrophils % 74.6 % (42.2-75.2) 09/12/23 14:41
Lymphocytes % 17.3 % (20.5-51.1) L 09/12/23 14:41
Monocytes % 7.4 % (1.7-9.3) 09/12/23 14:41
Eosinophils % 0.2 % (0-6) 09/12/23 14:41
Basophils % 0.2 % (0-2) 09/12/23 14:41
PT 13.4 Sec (11.4-14.6) 09/12/23 15:53
INR 1.03 09/12/23 15:53
Assessment / Plan
Possible Cholangitis
Obesity
- blood cultures x2
- agree with workup for alternative etiology - management per GI
- transition to augmentin - if no other etiology IDd then plan would be for a 5 day total course (3 more days); if an alternative explanation found then can stop antibiotics
[2023-09-14 15:30] VITALS: BP 133/78
--- NOTE | 2023-09-14 18:18 | PTCARENOTE ---
Pt tolerating low fat diet without abdominal pain or nausea. Pt reports still having abdominal tenderness. Pt able to have BM this afternoon.
[2023-09-14] MEDS: AUGMENTIN 875 MG/125 MG 1 TABLET PO (20:55)
[2023-09-14 23:48] VITALS: BP 136/78
[2023-09-15 05:23] LABS: IgA 156 mg/dl (70-400); IgG 779 mg/dl (700-1600); IgM 92 mg/dl (40-230)
[2023-09-15 07:55] VITALS: BP 145/84
--- NOTE | 2023-09-15 08:17 | W.PN.HOSP.TC ---
Addendum entered and electronically signed by Tanmay Burr MD 09/15/23 10:14:
Case discussed with Dr. Randhawa. As the patient's LFTs are trending down and she is tolerating a diet she is medically cleared for discharge.
Total time spent on d/c = 32 min. This included today's physical exam, progress note, review of laboratory and diagnostic data, preparation of discharge documents and prescriptions, and discussions about the pt's hospital course and discharge plan
with the patient and other medical secretary involved in the patient's care.
Original Note:
Today's Communication/Plan
-
will d/c if OK with GI
Assessment / Plan
Assessment / Plan
Gen: remains NAD, AAOx3.
Eyes: EOMI, PERRLA, no scleral icterus.
Neck: supple.
CV: RRR, +S1/S2, no m/r/g.
Resp: CTAB, no rales, wheezes, or rhonchi.
Abd: +BS, soft, NT, ND
Skin: No rashes.
Neuro: remains CN 2-12 intact, non-focal.
Psych: Normal mood and affect.
Abd U/S:
1. � Moderate biliary dilatation which has increased since 08/05/2023 suspicious for a distal biliary obstruction.
2. � Previous cholecystectomy.
CT A/P w/IV:
1. � Mild diffuse hepatic steatosis.
2. � Previous cholecystectomy and appendectomy.
3. � Mild colonic diverticulosis.
4. � Small left ovarian cysts.
MRI Abd/MRCP 09/13/23:
1. � Mild circumferential wall enhancement of the common hepatic and common bile ducts with mild surrounding inflammation suspicious for ACUTE CHOLANGITIS. Mild intrahepatic biliary dilatation. No evidence for choledocholithiasis or obstruction of
the common bile duct.
2. � Previous cholecystectomy.
3. � Multiple bilateral parapelvic renal cysts.
09/13/23 EUS: There was no sign of significant pathology in the pancreatic head. There was no sign of significant pathology in the ampulla.
Elevated LFTs:
-Cholestatic and hepatocellular pattern. Initially there was concern for choledocholithiasis. MRI abdomen/MRCP as above and without choledocholithiasis. There were findings suspicious for acute cholangitis. Endoscopic ultrasound as above without
significant pathology/findings.
-given Zosyn in ER. Afebrile, no leukocytosis. Then was on Unasyn, now transitioned to Augmentin as per ID.
-advanced to low fat
-GI following
-LFTs improving
-viral and autoimmune liver markers pending
Factor V Leiden mutation:
-cont Eliquis
FULL/Eliquis
Anticipated Discharge: Today
Subjective/Interval History
-
Date of Service: September 15, 2023
Patient denies abdominal pain. Just tolerated a low-fat breakfast.
Objective Data
-
Labs:
Laboratory Results
09/15/23
07:12
WBC Pending
Hgb Pending
Hct Pending
Plt Count Pending
Sodium Pending
Potassium Pending
Chloride Pending
Carbon Dioxide Pending
BUN Pending
Creatinine Pending
Glucose Pending
Calcium Pending
Total Bilirubin Pending
AST Pending
ALT Pending
Alkaline Phosphatase Pending
Vital Signs:
Vital Signs
Temp Pulse Resp BP Pulse Ox
98.5 F 44 18 136/78 100
09/14/23 23:48 09/14/23 23:48 09/14/23 23:48 09/14/23 23:48 09/14/23 23:48
I&O
09/14/23 09/15/23 09/16/23
06:59 06:59 06:59
Intake Total 2099
Balance 2099
[2023-09-15 08:21] LABS: Hematocrit 37.6 % (37.0-47.0); Mean Corp Hgb Conc. 34.6 g/dL (33.0-37.0); Mean Corpuscular Hgb 32.7 pg (27.0-31.0); Mean Corpuscular Volume 94.5 fL (81.0-99.0); Mean Platelet Volume 10.5 fL (7.4-10.4); Platelet Count 203 10^3/uL (130-400); Red Blood Cell Count 3.98 10^6/uL (4.20-5.40); Red Cell Dist. Width 12.5 % (11.5-14.5); White Blood Cell Count 4.3 10^3/uL (4.8-10.8)
[2023-09-15 08:52] LABS: ALT (SGPT) 443 U/L (0-35); AST (SGOT) 89 U/L (14-36); Albumin 3.5 g/dl (3.5-5.0); Alkaline Phosphatase 147 U/L (38-126); Blood Urea Nitrogen 8 mg/dl (7-17); Carbon Dioxide 23 mmol/L (22-30); Chloride 108 mmol/L (98-107); Estimated Creatinine Clearance 124 ml/min; Glucose 92 mg/dl (70-99); Potassium 3.9 mmol/L (3.5-5.1); Sodium 138 mmol/L (135-145); Total Bilirubin 1.1 mg/dl (0.2-1.3); Total Protein 5.9 g/dl (6.3-8.2); eGFR > 60.00
[2023-09-15] MEDS: AUGMENTIN 875 MG/125 MG 1 TABLET PO (09:01)
[2023-09-15] MEDS: ELIQUIS 5 MG PO (09:01)
[2023-09-15] MEDS: PROTONIX IV 40 MG IV (09:01)
[2023-09-15] MEDS: NSS (PRESERVATIVE FREE) 10 ML IV (09:02)
--- NOTE | 2023-09-15 11:25 | PTCARENOTE ---
Reviewed discharge instructions with patient. Patient verbalizes all instructions and is able to repeat back. Peripheral IV removed. Patient left via wheelchair with staff. Patient denies questions at this time.
--- NOTE | 2023-09-15 12:40 | CM ---
CM following re: d/c planning
Chart reviewed
Pt is medically stable for d/c
Pt has no skilled needs noted
Pt diet was advanced to low fat and she will continue Augmentin as directed
PLAN; d/c home no needs
--- NOTE | 2023-09-15 15:52 | W.DCSUMMARY ---
Discharge Summary
Discharge Data
Date of Admission: 09/12/23
Date of Discharge: 09/15/23
-
Pending Results: Yes
Additional Pending Results:
viral and autoimmune liver markers
Hospital Course
Primary diagnoses:
Acute hepatitis
Secondary diagnoses:
Obesity due to excess calories, BMI 33.8
Factor V Leiden mutation
Consultants:
Gastroenterology
Infectious disease
Imaging:
Abd U/S:
1. � Moderate biliary dilatation which has increased since 08/05/2023 suspicious for a distal biliary obstruction.
2. � Previous cholecystectomy.
CT A/P w/IV:
1. � Mild diffuse hepatic steatosis.
2. � Previous cholecystectomy and appendectomy.
3. � Mild colonic diverticulosis.
4. � Small left ovarian cysts.
MRI Abd/MRCP 09/13/23:
1. � Mild circumferential wall enhancement of the common hepatic and common bile ducts with mild surrounding inflammation suspicious for ACUTE CHOLANGITIS. Mild intrahepatic biliary dilatation. No evidence for choledocholithiasis or obstruction of
the common bile duct.
2. � Previous cholecystectomy.
3. � Multiple bilateral parapelvic renal cysts.
09/13/23 EUS: There was no sign of significant pathology in the pancreatic head. There was no sign of significant pathology in the ampulla.
Hospital course: 42-year-old female who presented with a chief complaint of abdominal pain as outlined in the H&P done on admission. Patient had elevated LFTs in a cholestatic and hepatocellular pattern. Initially there was concern for
choledocholithiasis.� MRI abdomen/MRCP as above and without choledocholithiasis.� There were findings suspicious for acute cholangitis.� Endoscopic ultrasound as above without significant pathology/findings. Patient's liver function test improved
while hospitalized. She was initially n.p.o. and on IV fluids. She was advanced to a low residue diet and tolerated that diet prior to discharge. She was initially given Zosyn and then transition to Unasyn. She was afebrile and had no
leukocytosis. She was seen by infectious disease and Augmentin for 3 further days was recommended. Viral and autoimmune liver markers were pending at the time of discharge.
Discharge Plan
-
Patient Disposition: Home (Routine Discharge)
Discharge Diagnosis/Procedures: Acute hepatitis, etiology not yet defined
Diet: Low Fat
Activity: As tolerated
Driving Restrictions: As prior to admission
Blood Work: CMP and CBC in 1 week, script from PCP
Referrals:
Shyam Thomas MD [Family Provider] - in less than 1 week
Prescriptions:
New
amoxicillin-pot clavulanate 875-125 mg Tablet
1 tab PO Q12 Qty: 6 0RF
Continued
escitalopram oxalate 20 MG tablet
20 mg PO DAILY
Eliquis 5 MG tablet
5 mg PO BID
pantoprazole [Protonix] 40 mg tablet,delayed release (DR/EC)
40 mg PO DAILY Qty: 30 0RF
ondansetron HCl 4 mg Tablet
4 mg PO TIDPRN PRN (Reason: nausea)
cyanocobalamin (vitamin B-12) 1,000 mcg Tablet
1,000 mcg PO DAILY
cholecalciferol (vitamin D3) [Vitamin D3] 25 mcg (1,000 unit) Tablet
25 mcg PO DAILY
omega 4-hjx-iuh-fish oil [Fish Oil] 1,000 mg (120 mg-180 mg) Capsule
1 cap PO DAILY
hyoscyamine sulfate 0.125 mg Tablet, Sublingual
0.125 mg PO TIDPRN PRN (Reason: spasms)
Discharge Orders:
Discharge Patient (As Directed); Ordered 09/15/23
Ordered By: Tanmay Burr
Discharge Date and Time
Discharge Date/Time: 09/15/23 11:30
[2023-09-15 19:59] LABS: Hepatitis B Surface Antigen Negative (Negative)
[2023-09-15 20:02] LABS: Hepatitis B Core Ab, Total Negative (Negative); Hepatitis B Surface Antibody Positive; Hepatitis C Antibody Negative (Negative)
[2023-09-15 20:14] LABS: Hepatitis A Antibody, Total Negative (Negative)
[2023-09-17 05:35] LABS: F-Actin Antibody IgG 3 Units (0-19); Mitochondrial M2 Ab, IgG 10.7 Units (0.0-24.9)
[2023-09-17 06:23] LABS: ANA, IgG Reflex to HEp-2 None Detected (None Detected)
== END 2023-09-15 11:30 | disposition home or self-care (01) | DRG 445 ==
LOC: 4 EAST ACU 17:32
PROVIDERS: Emergency Medicine; Internal Medicine Gastroenterology; Nurse Practitioner Family; Physician Assistant Medical; ADMITTING PHYSICIAN Internal Medicine; EMERGENCY PHYSICIAN Emergency Medicine; FAMILY PHYSICIAN Internal Medicine; OTHER PHYSICIAN Internal Medicine Gastroenterology; OTHER PHYSICIAN Student in an Organized Health Care Education/Training Program
PROC: 0DJ08ZZ Inspection of Upper Intestinal Tract, Via Natural or Artificial Opening Endoscopic (ICD-10-PCS; 2023-09-13)
DX: K80.30 Calculus of bile duct with cholangitis, unspecified, without obstruction (principal); D68.2 Hereditary deficiency of other clotting factors; K76.0 Fatty (change of) liver, not elsewhere classified; E66.9 Obesity, unspecified; Z68.33 Body mass index [BMI] 33.0-33.9, adult; K21.9 Gastro-esophageal reflux disease without esophagitis; F41.9 Anxiety disorder, unspecified
CPT/HCPCS: 74183; 76700; 80053; 82248; 82784; 83690; 84703; 85025; 85027; 85610; 85730; 86015; 86038; 86381; 86704; 86706; 86708; 86709; 86803; 86850; 86900; 86901; 87040; 87340; 93005; 96365; 96375; 99285; A9575

== ENCOUNTER → 2023-11-01 17:24 | Outpatient (REF) | payer BC, SELFPAY | LOC: WDC 17:24 | PROVIDERS: ATTENDING PHYSICIAN Nurse Practitioner | DX: Z12.31 Encounter for screening mammogram for malignant neoplasm of breast (principal) | CPT/HCPCS: 77063; 77067 ==

== ENCOUNTER → 2023-11-23 09:13 | Outpatient (REF) | payer BC, SELFPAY | LOC: PAVMRI 09:13 | PROVIDERS: ATTENDING PHYSICIAN Physician Assistant; FAMILY PHYSICIAN Internal Medicine | DX: R10.13 Epigastric pain (principal) | CPT/HCPCS: 74183; A9575 ==

== ENCOUNTER 2023-12-29 19:03 | Inpatient (IN) | payer BC, SELFPAY ==
[2023-12-29] VITALS (8 sets, daily range): BP systolic 91–120; BP diastolic 45–81; BMI 34.6; BMI 34.3
--- NOTE | 2023-12-29 14:23 | ED.PDOC.TRB ---
ED Provider Triage
-
Patient seen by provider in Triage?: Seen in Triage
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 Bates from GI. Had appointment within the week and if exacerbations happened requested patient get abd US without meds being given first. Patient endorses
nausea, flushed sensation. Unchanged from chronic symptoms. Labs and US ordered. Patient does appear quite uncomfortable is not wanting anything for pain until ultrasound is performed.
[2023-12-29 16:29] LABS: % Basophils 0.1 % (0-2); % Eosinophils 0.3 % (0-6); % Immature Granulocytes 0.3 % (0-0.5); % Lymphocytes 7.8 % (20.5-51.1); % Monocytes 7.6 % (1.7-9.3); % Neutrophils 83.9 % (42.2-75.2); Absolute Lymphocytes 0.7 10^3/uL (1.2-3.4); Absolute Monocytes 0.7 10^3/uL (0.1-0.6); Absolute Neutrophils 7.9 10^3/uL (1.4-6.5); Hematocrit 41.7 % (37.0-47.0); Hemoglobin 14.8 g/dL (12.0-16.0); Mean Corp Hgb Conc. 35.5 g/dL (33.0-37.0); Mean Corpuscular Volume 92.9 fL (81.0-99.0); Mean Platelet Volume 9.1 fL (7.4-10.4); Nucleated Red Blood Cells % 0 %; Platelet Count 230 10^3/uL (130-400); Red Blood Cell Count 4.49 10^6/uL (4.20-5.40); Red Cell Dist. Width 12.3 % (11.5-14.5); White Blood Cell Count 9.4 10^3/uL (4.8-10.8)
--- NOTE | 2023-12-29 16:43 | ED.GENMED ---
History of Present Illness
General
Chief Complaint: Abdominal Pain
Time Seen by Provider: 12/29/23 15:13
Travel History
Have you had any contact with someone who has COVID-19?: No
Do you have any symptoms of coronavirus? Fever > 100 degrees, chills, cough, shortness of breath, sore throat, loss of taste or smell, muscle aches, or headache?: No
History of Present Illness
History of Present Illness:
Patient presents to the emergency department with epigastric pain and nausea and chills. Symptoms started acutely this morning around 9 AM. She has a history of cholelithiasis status postcholecystectomy. She was admitted in August of this year
with similar symptoms and diagnosed with pancreatitis. At that time she had an MRCP that was negative for choledocholithiasis.
Past History
Past History
ED Past Medical History: Hypercholesterolemia, Psychiatric (anxiety on Lexapro) and Other (Factor V Leiden on eliquis)
ED Past Surgical History: Appendectomy, Cholecystectomy and Tonsilectomy
Social History
Tobacco: Non-smoker
Alcohol: None
Drug: None
Personal:
Living: with family
Phy Exam
Physical Exam
Physical Exam:
GENERAL APPEARANCE: uncomfortable appearing, rocking in stretcher
EYES lids/conjunctiva normal
EARS/NOSE/THROAT Mucous membranes moist, uvula midline without oral pharyngeal erythema, exudate or swelling
HEAD/NECK normocephalic atraumatic, neck is supple.
RESPIRATORY respiratory effort normal, speaks in full sentences, no accessory muscle use. Lungs clear to auscultation without rhonchi, wheezes, rales
CARDIAC Regular rate and rhythm, no edema.
ABDOMINAL soft, RUQ and epigastric ttp
MUSCLES/EXTREMITIES No abnormal range of motion, no swelling.
SKIN Warm, pink and dry. No rashes
NEUROLOGICAL Speech is clear and appropriate. Normal level of consciousness. 5/5 strength in all extremities.
PSYCH Normal mood and affect. Judgement/competence is appropriate
Course
Orders/Labs/Results
Orders:
Orders
12/29/23 14:25
US Abdomen Complete/Upper Urgent
Comment:
Reason For Exam: epigastric pain
12/29/23 14:27
Test Result ONCE
12/29/23 Dinner
NPO
Allow oral meds: No
Allow clear liquids: No
12/29/23 16:21
Complete Blood Count/With Diff Urgent
Comprehensive Metabolic Panel Urgent
HCG, Serum Qualitative Screen Urgent
Lipase Urgent
12/29/23 16:41
0.9% Sodium Chloride 1000 ml [Nss] 1,000 ml IV BOLUS
HYDROmorphone [Dilaudid] 0.5 mg IV NOW STA
Ondansetron Injectable [Zofran] 4 mg IV NOW STA
12/29/23 18:01
Admit/Transfer Patient As Directed
Co-Sign Provider:
Level of Care: Inpatient admission
Assign to:: Medical/Surgical
Physician / Group: Dr Harman
Diagnosis: Choledocholithiasis
Reason for Hospitalization: pte p/w abd pain and increase lft
Expected length of stay greater than two midnights?: Yes
ELOS- Estimated Length of Stay in days: 2
I certify the patient meets the requirements for IP care: Yes
12/29/23 18:02
Code Status As Directed
Resuscitation Status: Full Code
12/29/23 18:04
GASTROINTESTINAL CONSULT Routine
Consulting Provider: Lucia Hurley
Was physician already notified: Yes
Reason for consult: Choledocholithiasis eval
HYDROmorphone [Dilaudid] 0.5 mg IV Q3HPRN PRN
12/29/23 18:19
Heparin 7,500 units IV NOW STA
12/29/23 18:20
Heparin Protocol- PTT Orders As Directed
PTT per Heparin protocol: -Obtain CBC and baseline PTT - if not already collected.
-Obtain PTT 6 hours from start of infusion. Then, every 6 hours until 2 consecutive
PTT's are therapeutic. Then, PTT Daily.
-With each rate change, obtain PTT every 6 hours until 2 consecutive PTT's are
therapeutic. Then, PTT Daily.
Notify MD As Directed
Notify physician if: PTT is greater than or equal to 200.
12/29/23 18:30
Heparin 45186 Units/250 ml 25,000 units in 250 ml IV PER PROTOCOL
Weight to be used for heparin protocol in kilograms (kg):: 94.2
Protocol:: DVT/PE
PTT Goal Range to be used:: PTT 73 to 111 seconds
Order type:: Initial
INITIAL Infusion Dose (UNITS/KG/hr) & then follow protocol:: 18 units/kg/hr
Infusion Dose in UNITS/hr & then follow protocol (UNITS/hr):: 1,700
INFUSION RATE in mL/hr & then follow protocol (mL/hr):: 17
For DVT/PE algorithm, re-bolus for low PTT?: Yes
PTT less than or equal to 64 seconds:: Re-bolus 80 units/kg (max 10,000units). Increase by 400 units/hr
(+ 4mL/hr)
PTT 64.1 to 72.9 seconds:: Re-bolus 40 units/kg (max 5,000 units). Increase by 200 units/hr
(+ 2mL/hr)
PTT 73 to 111 seconds:: Target Range. No change in rate.
PTT 111.1 to 130.9 seconds:: Decrease rate by 200 units/hr (- 2 mL/hr)
PTT 131 to 199.9 seconds:: HOLD for 1 hr. Then decrease by 300 units/hr (- 3mL/hr)
PTT greater than or equal to 200 seconds:: HOLD for 2 hrs & Notify Provider. Then decrease by 400 units/hr
(- 4mL/hr)
Lab follow-up:: Each change, PTT q6h until 2 consecutive are therapeutic. Then
PTT daily.
12/29/23 18:39
Heparin 7,500 units IV PRN PRN
12/29/23 18:40
Heparin 3,800 units IV PRN PRN
12/29/23 18:54
Complete Blood Count/No Diff Urgent
Comment: Obtain baseline before beginning heparin infusion if not already collected
PTT Urgent
Comment: Obtain baseline before beginning heparin infusion if not already collected
12/29/23 19:00
Lactated Ringers [Lr] 1,000 ml IV 125 mls/hr
12/29/23 19:46
Bisacodyl [Dulcolax] 10 mg RECTAL [id number] PRN
Docusate W/Senna [Senokot-S] 1 tablet PO BIDPRN PRN
Polyethylene Glycol Powder [Miralax] 17 grams PO DAILYPRN PRN
12/29/23 19:46
Activity As Directed
Activity Level: Out of Bed-Early Mobility
Pneumatic Compression Sleeves As Directed
Type: Knee high
Vital Signs As Directed
Frequency: Per unit guidelines
DX Deep Vein Thrombosis Video Routine
12/30/23 06:00
Complete Blood Count/With Diff IN AM
Comprehensive Metabolic Panel IN AM
Lipase IN AM
12/31/23 06:00
Complete Blood Count/No Diff Q2D
Comment: Notify if platelet count is <130,000 or decreases by 50% from baseline
01/02/24 06:00
Complete Blood Count/No Diff Q2D
Comment: Notify MD if platelet count is <130,000 or decreases by 50% from baseline
01/04/24 06:00
Complete Blood Count/No Diff Q2D
Comment: Notify MD if platelet count is <130,000 or decreases by 50% from baseline
01/06/24 06:00
Complete Blood Count/No Diff Q2D
Comment: Notify MD if platelet count is <130,000 or decreases by 50% from baseline
01/08/24 06:00
Complete Blood Count/No Diff Q2D
Comment: Notify MD if platelet count is <130,000 or decreases by 50% from baseline
01/10/24 06:00
Complete Blood Count/No Diff Q2D
Comment: Notify MD if platelet count is <130,000 or decreases by 50% from baseline
01/12/24 06:00
Complete Blood Count/No Diff Q2D
Comment: Notify MD if platelet count is <130,000 or decreases by 50% from baseline
01/14/24 06:00
Complete Blood Count/No Diff Q2D
Comment: Notify MD if platelet count is <130,000 or decreases by 50% from baseline
Abnormal Lab Results
12/29/23 12/29/23
16:21 18:54
RBC 4.06 L 10^6/uL
(4.20-5.40)
MCH 33.0 H pg 32.8 H pg
(27.0-31.0) (27.0-31.0)
Absolute Neuts (auto) 7.9 H 10^3/uL
(1.4-6.5)
Absolute Lymphs (auto) 0.7 L 10^3/uL
(1.2-3.4)
Absolute Monos (auto) 0.7 H 10^3/uL
(0.1-0.6)
Neutrophils % 83.9 H %
(42.2-75.2)
Lymphocytes % 7.8 L %
(20.5-51.1)
Glucose 110 H mg/dl
(70-99)
Total Bilirubin 1.7 H mg/dl
(0.2-1.3)
AST 554 H* U/L
(14-36)
ALT 335 H U/L
(0-35)
Alkaline Phosphatase 157 H U/L
(38-126)
Lipase 568 H U/L
(23-300)
12/29/23 18:54
12/29/23 16:21
Vital Signs
Initial and Last Documented VS:
Initial Vital Signs
Temp Pulse Resp BP Pulse Ox
97.5 F 68 20 102/68 95
12/29/23 14:23 12/29/23 14:23 12/29/23 14:23 12/29/23 14:23 12/29/23 14:23
Last Documented Vital Signs
Temp Pulse Resp BP Pulse Ox
97.6 F 58 16 117/68 94
12/29/23 16:29 12/29/23 22:15 12/29/23 22:15 12/29/23 22:00 12/29/23 22:15
*Critical Care Note
Total Time (30-74mins, 75-104mins- exclusive of procedures): Not Applicable
ED Attending Note
ED Attending Note
ED Attending Note:
Patient presents to the ER with epigastric pain consistent with prior episode. Differential includes pancreatitis versus choledocholithiasis versus gastritis. Ultrasound showing retained stone in the CBD. There is no fever or leukocytosis or
concern for infection or cholangitis at this time.plan for admission to hospitalist with GI consult
-
Portions of this chart may have been created with voice recognition software.� Occasional wrong word or��sound alike� substitutions may have occurred due to the inherent limitations of voice recognition software.
Discharge Plan
Departure
Patient Disposition: Admit
Date of Disposition: 12/29/23
Time of Disposition: 17:33
Admit to: Med/Surg
Admit to doctor: hospitalist
Presentation/result/management discussed w/ accepting MD/DO: Hospitalist
Discharge Problem:
Acute pancreatitis, Choledocholithiasis
Interventions
Interventions:
*Risk Screen - Suicide Last Done: 12/29/23 16:26
*General Assessment Last Done: 12/29/23 16:24
*Neglect/Abuse Screening Last Done: 12/29/23 16:24
ED- Fall Risk Assessment Last Done: 12/29/23 16:26
*ED COVID-19 Vaccine History Last Done: 12/29/23 16:24
FV-Qkqhtp-Lpxdtsksph Assessment Last Done: 12/29/23 16:26
[2023-12-29 17:11] LABS: ALT (SGPT) 335 U/L (0-35); AST (SGOT) 554 U/L (14-36); Albumin 4.6 g/dl (3.5-5.0); Alkaline Phosphatase 157 U/L (38-126); Blood Urea Nitrogen 16 mg/dl (7-17); Calcium 10.1 mg/dl (8.4-10.2); Carbon Dioxide 23 mmol/L (22-30); Chloride 105 mmol/L (98-107); Estimated Creatinine Clearance 120 ml/min; Glucose 110 mg/dl (70-99); Lipase 568 U/L (23-300); Potassium 4.5 mmol/L (3.5-5.1); Sodium 137 mmol/L (135-145); Total Bilirubin 1.7 mg/dl (0.2-1.3); Total Protein 7.3 g/dl (6.3-8.2); eGFR > 60.00
[2023-12-29 17:12] LABS: HCG, Serum Qualitative Screen Negative
[2023-12-29] MEDS: NSS 1000 IV (17:18)
[2023-12-29] MEDS: ZOFRAN 4 MG IV ×2 (17:19→20:54)
[2023-12-29] MEDS: DILAUDID 0.5 MG IV ×3 (17:19→23:34)
--- NOTE | 2023-12-29 18:05 | HPS.HSE ---
Family Physician
-
Family Physician: AURELIA Dunn
Chief Complaint
-
Abdominal pain
History of Present Illness
Patient 43 years old female history of factor V Leiden, pancreatitis in the past, DVT, GERD, depression, came into the hospital abdominal pain. Patient started having severe abdominal pain epigastric area started this morning associated with
nausea, feeling hot and cold, also some mild constipation. No fevers. No chest pain or shortness of breath. Denies dysuria urgency frequency. Denies cough. She had a hospitalization back in August this year for what appears to be hepatitis or
possible cholangitis episode. This time she was found to have elevated LFTs. She was given pain medications with narcotics and even then pain not well-controlled yet by the time of my evaluation, otherwise hemodynamically stable afebrile. In the
ER, white blood cell count 9.4, total bilirubin 1.7 AST 154, ALT 335, alkaline phosphatase 157, lipase 160 and ultrasound of the abdomen shows 1.1 cm CBD stone causing mild intrahepatic biliary dilation. Also prior cholecystectomy noticed. She was
referred to hospitalist for further evaluation.
Medical History
Past Medical History
Past Medical History: Reports Other (Factor V Leiden, DVT, pancreatitis, depression anxiety, GERD.)
Past Surgical History: Reports Other (Cholecystectomy, appendectomy, tonsillectomy.)
Social History
Tobacco: Non-smoker
Alcohol: None
Drug: None
Family History
Family History: Not pertinent
Allergies / Home Medications
Allergies reflects when Allergies were last updated in [facility].
Home Medications with original date entered in [facility]
Allergy/Medication List:
Allergies
Allergy/AdvReac Type Severity Reaction Status Date / Time
brompheniramine maleate Allergy Hives Verified 09/12/23 14:31
[From [facility] Allergy]
phenylpropanolamine HCl Allergy Hives Verified 09/12/23 14:31
[From [employer] Allergy]
Home Medications
apixaban 5 mg tablet (Eliquis) 5 mg PO BID Factor V Leiden mutation 07/23/20
escitalopram oxalate 20 mg tablet 20 mg PO DAILY Mental Health/Anxiety 07/23/20
pantoprazole 40 mg tablet,delayed release (Protonix) 40 mg PO DAILY #30 tabs 10/07/22
cholecalciferol (vitamin D3) 25 mcg (1,000 unit) tablet (Vitamin D3) 25 mcg PO DAILY Supplement 09/12/23
cyanocobalamin (vitamin B-12) 1,000 mcg tablet 1,000 mcg PO DAILY Supplement 09/12/23
omega 9-zju-kix-fish oil 1,000 mg (120 mg-180 mg) capsule (Fish Oil) 1 cap PO DAILY Supplement 09/12/23
ferrous sulfate 325 mg (65 mg iron) tablet 325 mg PO Q48H 12/29/23
Review of Systems
-
A 12 point ROS was completed and negative except as noted: Yes
Physical Exam
Vital Signs
Vital Signs
Temp Pulse Resp BP Pulse Ox
97.6 F 62 18 106/75 100
12/29/23 16:29 12/29/23 16:29 12/29/23 16:29 12/29/23 16:29 12/29/23 16:29
Physical exam:
General: Acutely ill
HEENT: Normocephalic, Atraumatic and Moist Mucous Membranes
Respiratory: Clear to Auscultation; Negative Wheezes, Rales or Rhonchi
Cardiac: Regular Rhythm and S1/S2
GI: Soft, Tender mainly epigastric and right upper quadrant area and Nondistended
Musculoskeletal: No Clubbing, No Cyanosis and No Edema
Neuro: Awake, Alert and Oriented
Psych: Calm
Physical Exam
General: Other
Laboratory Results
-
12/29/23 16:21
12/29/23 16:21
Laboratory Results
Total Bilirubin 1.7 mg/dl (0.2-1.3) H 12/29/23 16:21
AST 554 U/L (14-36) H* 12/29/23 16:21
ALT 335 U/L (0-35) H 12/29/23 16:21
Alkaline Phosphatase 157 U/L (38-126) H 12/29/23 16:21
Lipase 568 U/L (23-300) H 12/29/23 16:21
Impression/Plan
-
IMPRESSION:
Patient 43 years old female history of factor V Leiden came into the hospital with severe abdominal pain found to have choledocholithiasis. Patient at increased risk of cholangitis, sepsis, therefore she will be needed to be in the hospital and
manage accordingly and monitor for progress and gastrointestinal procedure.
Impression:
Acute choledocholithiasis
Factor V Leiden on anticoagulation
Recurrent pancreatitis
Conditions prior to presentation:
Factor V Leiden
Recurrent pancreatitis
Depression anxiety
PLAN:
She will be admitted to medical floor
Keep her n.p.o.
Will likely require ERCP
IV PPI
IV fluid, lactate ranger at 125 cc/h
Pain control
Hold off on antibiotics unless she develops fevers or any signs of infection.
Will start anticoagulation with heparin drip since she needs to be protected from VTE standpoint and this can easily be stopped before any procedures and hold off on Eliquis (he has not taken Eliquis today anyway).
GI consult ([place] texted GI today)
DVT prophylaxis will be on heparin
CODE STATUS full code
Will give further recommendations based on clinical course
Total time spent on today's encounter was 75 minutes which included time spent in counseling the patient/family regarding diagnosis and treatment plan as listed above, goals of care, and symptom management. Case was discussed with nursing staff,
specialists, and care coordinators/case management. All labs and imaging personally reviewed by me. Remainder the time spent in detailed review of previous records, lab data, imaging, and other medical provider documentation.
[2023-12-29 19:00] LABS: Hemoglobin 13.3 g/dL (12.0-16.0); Mean Corpuscular Hgb 32.8 pg (27.0-31.0); Mean Corpuscular Volume 93.6 fL (81.0-99.0); Mean Platelet Volume 9.2 fL (7.4-10.4); Platelet Count 211 10^3/uL (130-400); Red Blood Cell Count 4.06 10^6/uL (4.20-5.40); Red Cell Dist. Width 12.2 % (11.5-14.5); White Blood Cell Count 8.4 10^3/uL (4.8-10.8)
[2023-12-29 19:10] LABS: APTT 27.4 Sec (23.4-35.0)
[2023-12-29] MEDS: PROTONIX IV 40 MG IV (19:35)
[2023-12-29] MEDS: NSS (PRESERVATIVE FREE) 10 ML IV (19:35)
[2023-12-29] MEDS: LR 1000 IV (19:38)
[2023-12-29] MEDS: HEPARIN 7500 UNITS IV (19:49)
[2023-12-29] MEDS: HEPARIN 25000 UNITS/250 ML IV (19:51)
[2023-12-30] VITALS (8 sets, daily range): BP systolic 102–140; BP diastolic 58–88
[2023-12-30 02:16] LABS: APTT 149.1 Sec (23.4-35.0)
[2023-12-30] MEDS: LR 1000 IV ×3 (03:44→20:27)
--- NOTE | 2023-12-30 06:45 | CON.GI ---
Addendum entered and electronically signed by Lucia Hurley MD 12/30/23 14:57:
I saw and examined the patient.
The COMMERCIAL REAL ESTATE ASSISTANT or PA's note was reviewed and I agree with the note.
Comment: 43-year-old female with history of factor V Leyden, history of DVTs, currently on Eliquis, history of previous cholecystectomy, presenting with epigastric pain, elevated LFTs including total bilirubin, transaminases, elevated lipase,
ultrasound showing choledocholithiasis. Has had these episodes intermittently, there was a concern for possible gastroenterocolitis function as recent MRI in November 2023 did not show any choledocholithiasis. No fevers or chills. No evidence of
cholangitis.
-Epigastric pain with elevated LFTs and lipase, ultrasound showing choledocholithiasis, possible gallstone pancreatitis
No evidence of cholangitis.
For EUS/ERCP today with Dr. Bates.
Last Eliquis 2 days ago.
Original Note:
Consultation
-
Date/Time Consultation Requested: 12/29/23 1800
Date/Time Consultation Performed: 12/30/23 0800
Requesting Provider: Shahbaz Harman MD
Performing Provider: AURELIA Lancaster, Lucia Hurley MD
Reason for Consultation: abdominal pain increased LFT's and lipase
Medical History
Chief Complaint / HPI
Chief Complaint: abdominal pain
History of Present Illness:
Pt is a 43yo with hx GERD, depression, factor V Leiden/ DVT on Eliquis, prior ana with onset of abdominal pain. She admits to symptoms since September of 2022. She had ER eval 07/2023 then she was admitted in August with similar symptoms with
pain, and abnormal LFT's. Imaging with concern for ductal dilation on US with concern for choledocholithiasis. At that time she completed MRI with concern for acute cholangitis wall enhancement of common hepatic and common bile duct. f/u EUS
with No significant pathology identified in the pancreatic head or ampulla. No evidence of choledocholithiasis. There did appear to be thickening of the common bile duct. She had follow up office visit with ANGELIUQE Peña with complaints of
continued intermittent pain. MR complete in November with improvement with duct dilatation or choledocholithiasis. She then followed up with Dr. Bates 12/25 with concern for sphincter of Chin dysfunction. She discussed treatment with ERCP and
sphincterotomy but decided to hold. She now presents with recurrent pain. US on admission with concern for 1.1 cm CBD stone with intrahepatic biliary dilatation and fatty liver. On admission WBC normal, bili 1.7, AST 554, 335 ALT and alk phos 157
with lipase 568.
At this time she admits this episode was severe prior to admission. She has had some mini episode between without hospital evaluation and periods of feeling well. She typically does not have vomiting but did have some vomiting with this
episode likely not med related as has had pain meds in past without vomiting. She denies fever, chill, but admits to recent 25 lb intentional wt loss. + dark urine but not change in stool color, diarrhea, constipation, or rectal bleeding. No new
meds, rare ETOH use. Last Eliquis 2 days ago.
Past Medical History
Past Medical History: GERD, Psychiatric (depression) and Other (factor V Leiden, pancreatitis, DVT)
Past Surgical History: Appendectomy, Cholecystectomy and Tonsilectomy
Social History
Tobacco: Non-Smoker
Alcohol: Occasional (rare)
Drug: None
Personal:
Living: With Family
Employment: Employed
Family History
Family History: Other (no family hx GI issues )
Allergies / Home Medications
Allergy/AdvReac Type Severity Reaction Status Date / Time
brompheniramine maleate Allergy Hives Verified 09/12/23 14:31
[From [employer] Allergy]
phenylpropanolamine HCl Allergy Hives Verified 09/12/23 14:31
[From [employer] Allergy]
�Medication �Instructions �Recorded
apixaban 5 mg tablet (Eliquis) 5 mg PO BID Factor V Leiden 07/23/20
mutation
escitalopram oxalate 20 mg tablet 20 mg PO DAILY Mental 07/23/20
Health/Anxiety
pantoprazole 40 mg tablet,delayed 40 mg PO DAILY #30 tabs 10/07/22
release (Protonix)
cholecalciferol (vitamin D3) 25 25 mcg PO DAILY Supplement 09/12/23
mcg (1,000 unit) tablet (Vitamin
D3)
cyanocobalamin (vitamin B-12) 1,000 mcg PO DAILY Supplement 09/12/23
1,000 mcg tablet
omega 5-qjl-rvi-fish oil 1,000 mg 1 cap PO DAILY Supplement 09/12/23
(120 mg-180 mg) capsule (Fish Oil)
ferrous sulfate 325 mg (65 mg 325 mg PO Q48H 12/29/23
iron) tablet
Review of Systems
-
History Source: Patient
Constitutional: Reports Weight Loss (25 lbs intentional wt loss )
EENT: Reports No Symptoms
Respiratory: Reports No Symptoms
Cardiac: Reports No Symptoms
Abdomen/GI: Reports Abdominal Pain, Nausea and Vomiting
: Reports Dark Urine
Musculoskeletal: Reports No Symptoms
Skin: Reports No Symptoms
Neurological: Reports Weakness
Endocrine: Reports No Symptoms
Hematologic/Lymphatic: Reports No Symptoms
Vital Signs
Temp Pulse Resp BP Pulse Ox
97.8 F 48 16 120/71 100
12/29/23 23:02 12/29/23 23:02 12/29/23 23:02 12/29/23 23:02 12/30/23 00:00
Physical Exam
Exam
General: Well Developed, Well Nourished and No Apparent Distress
HEENT: Other (mild jaundice )
Respiratory: Clear
Cardiac: Other (bradicardia)
GI: Soft, Non Distended and Tender (mild epigastric pain improved per patient since admission)
Musculoskeletal: No Clubbing and No Cyanosis
Skin: Warm and Dry
Neuro: Awake, Alert and AO x 3
Psych: Calm
Results
WBC 8.4 10^3/uL (4.8-10.8) 12/29/23 18:54
Hgb 13.3 g/dL (12.0-16.0) 12/29/23 18:54
Hct 38.0 % (37.0-47.0) 12/29/23 18:54
MCV 93.6 fL (81.0-99.0) 12/29/23 18:54
Plt Count 211 10^3/uL (130-400) 12/29/23 18:54
Absolute Neuts (auto) 7.9 10^3/uL (1.4-6.5) H 12/29/23 16:21
APTT 149.1 Sec (23.4-35.0) H 12/30/23 01:47
Sodium 137 mmol/L (135-145) 12/29/23 16:21
Potassium 4.5 mmol/L (3.5-5.1) 12/29/23 16:21
Chloride 105 mmol/L (98-107) 12/29/23 16:21
Carbon Dioxide 23 mmol/L (22-30) 12/29/23 16:21
BUN 16 mg/dl (7-17) 12/29/23 16:21
Creatinine 0.7 mg/dL (0.6-1.0) 12/29/23 16:21
Calcium 10.1 mg/dl (8.4-10.2) 12/29/23 16:21
Total Bilirubin 1.7 mg/dl (0.2-1.3) H 12/29/23 16:21
AST 554 U/L (14-36) H* 12/29/23 16:21
ALT 335 U/L (0-35) H 12/29/23 16:21
Alkaline Phosphatase 157 U/L (38-126) H 12/29/23 16:21
Lipase 568 U/L (23-300) H 12/29/23 16:21
Diagnostic Image Results:
12/29/23 US abdomen
IMPRESSION: 1.1 cm CBD stone causing mild intrahepatic biliary dilatation. New.
Prior cholecystectomy. Stable
Bilateral parapelvic renal cysts. Stable
Hepatic fatty infiltration. New
11/23/23 MR abdomen
No MRI evidence for an acute abnormality of the abdomen.
Surgically absent gallbladder. No intrahepatic or extrahepatic bile duct dilatation. No evidence for choledocholithiasis. The main pancreatic duct is nondilated. The pancreas, liver, spleen, and bilateral adrenal glands are unremarkable. Bilateral
parapelvic renal cysts, left greater than right. No hydronephrosis.
09/13/23 MRI abdomen
1. Mild circumferential wall enhancement of the common hepatic and common bile ducts with mild surrounding inflammation suspicious for ACUTE CHOLANGITIS. Mild intrahepatic biliary dilatation. No evidence for choledocholithiasis or obstruction of
the common bile duct.
2. Previous cholecystectomy.
3. Multiple bilateral parapelvic renal cysts.
09/12/2023 US abdomen: IMPRESSION:
1. � Moderate biliary dilatation which has increased since 08/05/2023 suspicious for a distal biliary obstruction.
2. � Previous cholecystectomy.
08/05/2023 CT A/P w/IV contrast only: IMPRESSION:
1. � Mild diffuse hepatic steatosis.
2. � Previous cholecystectomy and appendectomy.
3. � Mild colonic diverticulosis.
4. � Small left ovarian cysts.
Prior GI Procedures:
EGD: 05/06/2023 Dr. Roth: �Normal esophagus. Small hiatal hernia. A single gastric polyp. Biopsied. Normal examined duodenum. Biopsied. Biopsies were taken with a cold forceps for Helicobacter pylori testing. If pain recurs may need MRCP. Bx
showing mild chronic inactive gastritis. Neg for H pylori.
04/23/2011 Dr. Burgess: Z-line regular, 39 cm from the incisors. Biopsied. Bile gastritis. This was biopsied. Normal 2nd part of the duodenum. Bx negative.
Colonoscopy: 09/21/2021 Dr. Burgess: �Diverticulosis in the sigmoid colon. The examination was otherwise normal. No specimens collected.
05/21/2016 Dr. Burgess: One 3 mm hyperplastic polyp at the recto-sigmoid colon. Resected and retrieved. The examination was otherwise normal.
2010, Dr. Burgess: One 3 mm adenomatous polyp in the cecum. Resected and retrieved. The examination was otherwise normal.
09/13/23 EUS, Dr. Bates: No significant pathology identified in the pancreatic head or ampulla. No evidence of choledocholithiasis. There did appear to be thickening of the common bile duct. No specimens collected.
Assessment / Plan
-
Pt is a 43yo with hx GERD, depression, factor V leiden/ DVT on Eliquis, prior ana with onset of abdominal pain. She admits to symptoms since September of 2022. She had ER eval 07/2023 then she was admitted in August with similar symptoms with
pain, and abnormal LFT's. Imaging with concern for ductal dilation on US with concern for choledocholithiasis. At that time she completed MRI with concern for acute cholangitis wall enhancement of common hepatic and common bile duct. f/u EUS
with No significant pathology identified in the pancreatic head or ampulla. No evidence of choledocholithiasis. There did appear to be thickening of the common bile duct. She had follow up office visit with ANGELIQUE Peña with complaints of
continued intermittent pain. MR complete in November with improvement with duct dilatation or choledocholithiasis. She then followed up with Dr. Bates 12/25 with concern for sphincter of Chin dysfunction. She discussed treatment with ERCP and
sphincterotomy but decided to hold. She now presents with recurrent pain. US on admission with concern for 1.1 cm CBD stone with intrahepatic biliary dilatation and fatty liver. On admission WBC normal, bili 1.7, AST 554, 335 ALT and alk phos 157
with lipase 568.
Problem list:
-abdominal pain
-Abnormal LFTs and lipase
-concern for CBD stone on US
-recent review for sphincter of Chin dysfunction
-recent intentional wt loss
-hx Factor V Liden on Eliquis prior to admission
-hx CCY 2020
-GERD
-anxiety
-hx DVT
fatty liver
Recommendations:
Etiology of symptoms with concern for gallstone pancreatitis-- CBD stone, sphincter of Chin dysfunction, vs other
US as noted with concern for CBD stone
plan for EUS +/- ERCP later today
last Eliquis 12/[address] Harman -- will hold heparin gtt now
NPO
pain control
IVF-- LR 150ml/hr
trend labs
fatty liver noted new on US -- OP follow up to review
-
-
Thank you for consultation and allowing me to participate in the patient's care. Please call the inspection machine tender GI physician during the after hours with any questions or concerns.
[2023-12-30 07:35] LABS: % Basophils 0.5 % (0-2); % Eosinophils 0.6 % (0-6); % Immature Granulocytes 0.3 % (0-0.5); % Monocytes 10.7 % (1.7-9.3); % Neutrophils 68.9 % (42.2-75.2); Absolute Lymphocytes 1.2 10^3/uL (1.2-3.4); Absolute Monocytes 0.7 10^3/uL (0.1-0.6); Absolute Neutrophils 4.4 10^3/uL (1.4-6.5); Hematocrit 36.5 % (37.0-47.0); Hemoglobin 12.5 g/dL (12.0-16.0); Mean Corp Hgb Conc. 34.2 g/dL (33.0-37.0); Mean Corpuscular Hgb 32.5 pg (27.0-31.0); Mean Corpuscular Volume 94.8 fL (81.0-99.0); Mean Platelet Volume 10.2 fL (7.4-10.4); Nucleated Red Blood Cells % 0 %; Platelet Count 199 10^3/uL (130-400); Red Blood Cell Count 3.85 10^6/uL (4.20-5.40); Red Cell Dist. Width 12.6 % (11.5-14.5); White Blood Cell Count 6.4 10^3/uL (4.8-10.8)
[2023-12-30] MEDS: PROTONIX IV 40 MG IV (07:48)
[2023-12-30 07:49] LABS: Albumin 3.5 g/dl (3.5-5.0); Alkaline Phosphatase 151 U/L (38-126); Blood Urea Nitrogen 12 mg/dl (7-17); Calcium 8.7 mg/dl (8.4-10.2); Carbon Dioxide 23 mmol/L (22-30); Chloride 109 mmol/L (98-107); Estimated Creatinine Clearance 120 ml/min; Glucose 110 mg/dl (70-99); Potassium 4.5 mmol/L (3.5-5.1); Sodium 138 mmol/L (135-145); Total Protein 5.9 g/dl (6.3-8.2); eGFR > 60.00
[2023-12-30] MEDS: NSS (PRESERVATIVE FREE) 10 ML IV (07:49)
[2023-12-30 08:04] LABS: ALT (SGPT) 843 U/L (0-35); AST (SGOT) 885 U/L (14-36)
--- NOTE | 2023-12-30 08:13 | W.PN.HOSP.TC ---
Today's Communication/Plan
-
Plan for ERCP.
Assessment / Plan
Assessment / Plan
Physical exam:
General: Well Developed, Well Nourished and No Apparent Distress
HEENT: Normocephalic, Atraumatic and Moist Mucous Membranes
Respiratory: Clear to Auscultation; Negative Wheezes, Rales or Rhonchi
Cardiac: Regular Rhythm and S1/S2
GI: Soft, tender and Nondistended
Musculoskeletal: No Clubbing, No Cyanosis and No Edema
Neuro: Awake, Alert and Oriented
Psych: Calm
A/P:
Impression:
Acute choledocholithiasis
Acute gallstone pancreatitis
Factor V Leiden on anticoagulation
Elevated LFTs--> continue to go up.
Conditions prior to presentation:
Factor V Leiden
Recurrent pancreatitis
Depression anxiety
Status post cholecystectomy in the past
PLAN:
Keep her n.p.o.
Will likely require ERCP
IV PPI
IV fluid, lactate ranger at 150 cc/h
Pain control
Hold off on antibiotics unless she develops fevers or any signs of infection.
Continue heparin drip but on hold for now for upcoming procedure. Will either restart heparin or back to Eliquis after procedure.
GI consult appreciated. Plan for ERCP +EUS
DVT prophylaxis will be on heparin
CODE STATUS full code
Total time spent on today's encounter was 52 minutes which included time spent in counseling the patient/family regarding diagnosis and treatment plan as listed above, goals of care, and symptom management. Case was discussed with nursing staff,
specialists, and care coordinators/case management. All labs and imaging personally reviewed by me. Remainder the time spent in detailed review of previous records, lab data, imaging, and other medical provider documentation.
Anticipated Discharge: 24 - 48 hours
Subjective/Interval History
-
Date of Service: December 30, 2023
Patient abdominal pain better. No nausea or vomiting. Afebrile
Objective Data
-
Labs:
Laboratory Results
12/30/23 12/30/23 12/30/23
01:47 04:34 09:30
WBC 6.4
Hgb 12.5
Hct 36.5 L
Plt Count 199
APTT 149.1 H Pending
Sodium 138
Potassium 4.5
Chloride 109 H
Carbon Dioxide 23
BUN 12
Creatinine 0.7
Glucose 110 H
Calcium 8.7
Total Bilirubin 2.0 H
AST 885 H*
ALT 843 H*
Alkaline Phosphatase 151 H
Vital Signs:
Vital Signs
Temp Pulse Resp BP Pulse Ox
98.3 F 47 16 102/58 96
12/30/23 07:05 12/30/23 07:05 12/30/23 07:05 12/30/23 07:05 12/30/23 07:05
[2023-12-30 08:26] LABS: Lipase > 4000 U/L (23-300)
[2023-12-30 08:41] LABS: Direct Bilirubin 1.1 mg/dl (0.0-0.4)
--- NOTE | 2023-12-30 15:35 | CM ---
met with patient at bedside.patient lives with her and 2 children in house with no freddy,her bed and bath is on the first level,she amb i,is I with her adl's.she has no poa.dr lee is her pcp and she uses [facility] in
[place].she had a vn after childbirth and she has no ip rehad episodes.
patient with a hx of pancreatitis,factor v lieden,ana maría perez is adm with gallstones in cbd.she is npo,ivf of ringers lactate,iv ppi,heparin gtt..patient is for an ercp/eus.Plan is dc home with no needs.
[2023-12-30] MEDS: DILAUDID 0.5 MG IV (17:21)
--- NOTE | 2023-12-30 18:02 | PTCARENOTE ---
Received pt back from GI lab, VSS, pt resting comfortably at this time.
[2023-12-30] MEDS: COMPAZINE 5 MG IV (20:26)
[2023-12-30] MEDS: HEPARIN 25000 UNITS/250 ML IV (21:33)
[2023-12-31 03:23] VITALS: BP 111/61
[2023-12-31 04:20] LABS: APTT 71.4 Sec (23.4-35.0)
[2023-12-31] MEDS: HEPARIN 3800 UNITS IV (04:29)
[2023-12-31] MEDS: LR 1000 IV ×2 (06:19→15:57)
--- NOTE | 2023-12-31 07:19 | W.PN.HOSP.TC ---
Today's Communication/Plan
-
Possible advance diet.
Assessment / Plan
Assessment / Plan
Physical exam:
General: Well Developed, Well Nourished and No Apparent Distress
HEENT: Normocephalic, Atraumatic and Moist Mucous Membranes
Respiratory: Clear to Auscultation; Negative Wheezes, Rales or Rhonchi
Cardiac: Regular Rhythm and S1/S2
GI: Soft, Non tender and Nondistended
Musculoskeletal: No Clubbing, No Cyanosis and No Edema
Neuro: Awake, Alert and Oriented
Psych: Calm
A/P:
Impression:
Acute choledocholithiasis
Acute gallstone pancreatitis
Factor V Leiden on anticoagulation
Elevated LFTs--> trending down postprocedure
Conditions prior to presentation:
Factor V Leiden
Recurrent pancreatitis
Depression anxiety
Status post cholecystectomy in the past
PLAN:
Tolerating clear liquid diet
Advance diet today if okay by GI
Status post biliary sphincterotomy on 12/29 by GI. Biliary tree was swept and sludge was found but no stone.
IV PPI
IV fluid, lactate ranger at 100 cc/h
Pain control
Hold off on antibiotics unless she develops fevers or any signs of infection.
Resume Eliquis and stop heparin
Resume her oral medications
DVT prophylaxis on Eliquis
CODE STATUS full code
Anticipated Discharge: 24 - 48 hours
Subjective/Interval History
-
Date of Service: December 31, 2023
Patient better overall. No nausea or vomiting. No abdominal pain today.
Objective Data
-
Labs:
Laboratory Results
12/31/23 12/31/23 12/31/23
03:42 06:10 10:30
WBC Pending
Hgb Pending
Hct Pending
Plt Count Pending
APTT 71.4 H Pending
Sodium Pending
Potassium Pending
Chloride Pending
Carbon Dioxide Pending
BUN Pending
Creatinine Pending
Glucose Pending
Calcium Pending
Total Bilirubin Pending
AST Pending
ALT Pending
Alkaline Phosphatase Pending
Vital Signs:
Vital Signs
Temp Pulse Resp BP Pulse Ox
98.2 F 43 16 111/61 99
12/31/23 03:23 12/31/23 03:23 12/31/23 03:23 12/31/23 03:23 12/31/23 03:23
I&O
12/30/23 12/31/23 01/01/24
06:59 06:59 06:59
Intake Total 3091 / 3091
Balance 3091 / 3091
[2023-12-31 07:20] LABS: % Basophils 0.4 % (0-2); % Eosinophils 2.1 % (0-6); % Immature Granulocytes 0.4 % (0-0.5); % Lymphocytes 29.2 % (20.5-51.1); % Monocytes 7.1 % (1.7-9.3); % Neutrophils 60.8 % (42.2-75.2); Absolute Eosinophils 0.1 10^3/uL (0-0.7); Absolute Lymphocytes 1.5 10^3/uL (1.2-3.4); Absolute Monocytes 0.4 10^3/uL (0.1-0.6); Absolute Neutrophils 3.2 10^3/uL (1.4-6.5); Hematocrit 36.6 % (37.0-47.0); Hemoglobin 12.3 g/dL (12.0-16.0); Mean Corp Hgb Conc. 33.6 g/dL (33.0-37.0); Mean Corpuscular Hgb 32.6 pg (27.0-31.0); Mean Corpuscular Volume 97.1 fL (81.0-99.0); Mean Platelet Volume 10.3 fL (7.4-10.4); Nucleated Red Blood Cells % 0 %; Platelet Count 163 10^3/uL (130-400); Red Blood Cell Count 3.77 10^6/uL (4.20-5.40); Red Cell Dist. Width 12.2 % (11.5-14.5); White Blood Cell Count 5.2 10^3/uL (4.8-10.8)
[2023-12-31 07:30] VITALS: BP 143/73
[2023-12-31] MEDS: PROTONIX IV 40 MG IV (08:14)
[2023-12-31] MEDS: NSS (PRESERVATIVE FREE) 10 ML IV (08:14)
[2023-12-31 08:24] LABS: ALT (SGPT) 477 U/L (0-35); AST (SGOT) 218 U/L (14-36); Albumin 3.3 g/dl (3.5-5.0); Alkaline Phosphatase 140 U/L (38-126); Blood Urea Nitrogen 15 mg/dl (7-17); Calcium 8.8 mg/dl (8.4-10.2); Carbon Dioxide 20 mmol/L (22-30); Chloride 109 mmol/L (98-107); Estimated Creatinine Clearance 120 ml/min; Glucose 82 mg/dl (70-99); Lipase 489 U/L (23-300); Potassium 4.1 mmol/L (3.5-5.1); Sodium 138 mmol/L (135-145); Total Bilirubin 0.6 mg/dl (0.2-1.3); Total Protein 5.6 g/dl (6.3-8.2); eGFR > 60.00
[2023-12-31] MEDS: VITAMIN B-12 1000 MCG PO (09:25)
[2023-12-31] MEDS: FEOSOL 325 MG PO (09:25)
[2023-12-31] MEDS: VITAMIN D3 (cholecalciferol) 25 MCG PO (09:25)
[2023-12-31] MEDS: ELIQUIS 5 MG PO ×2 (09:25→19:52)
[2023-12-31] MEDS: LEXAPRO 20 MG PO (09:25)
[2023-12-31] MEDS: PROTONIX 40 MG PO (09:25)
[2023-12-31 11:20] VITALS: BP 136/76
[2023-12-31 15:25] VITALS: BP 116/65
[2023-12-31 19:38] VITALS: BP 142/81
--- NOTE | 2023-12-31 20:05 | W.PN.GI.CBS2 ---
Today's Communication / Plan
-
-Etiology of symptoms with concern for gallstone pancreatitis-- CBD stone, sphincter of Chin dysfunction, vs other
US as noted with concern for CBD stone
She is status post ERCP with biliary sphincterotomy, sludge noted
LFTs, lipase trending down
Okay to advance to full liquid diet and then loose to diet as tolerated.
If doing well tomorrow, she can be discharged and follow-up with Dr. Bates in GI office in 8 weeks.
fatty liver noted new on US -- OP follow up to review
Assessment / Plan
-
Pt is a 43yo with hx GERD, depression, factor V leiden/ DVT on Eliquis, prior ana with onset of abdominal pain. She admits to symptoms since September of 2022. She had ER eval 07/2023 then she was admitted in August with similar symptoms with
pain, and abnormal LFT's. Imaging with concern for ductal dilation on US with concern for choledocholithiasis. At that time she completed MRI with concern for acute cholangitis wall enhancement of common hepatic and common bile duct. f/u EUS
with No significant pathology identified in the pancreatic head or ampulla. No evidence of choledocholithiasis. There did appear to be thickening of the common bile duct. She had follow up office visit with ANGELIQUE Peña with complaints of
continued intermittent pain. MR complete in November with improvement with duct dilatation or choledocholithiasis. She then followed up with Dr. Bates 12/25 with concern for sphincter of Chin dysfunction. She discussed treatment with ERCP and
sphincterotomy but decided to hold. She now presents with recurrent pain. US on admission with concern for 1.1 cm CBD stone with intrahepatic biliary dilatation and fatty liver. On admission WBC normal, bili 1.7, AST 554, 335 ALT and alk phos 157
with lipase 568.
Problem list:
-abdominal pain
-Abnormal LFTs and lipase
-concern for CBD stone on US
-recent review for sphincter of Chin dysfunction
-recent intentional wt loss
-hx Factor V Liden on Eliquis prior to admission
-hx CCY 2020
-GERD
-anxiety
-hx DVT
fatty liver
ERCP- - The common bile duct was mildly dilated.
- A biliary sphincterotomy was performed.
- The biliary tree was swept and sludge was found. No
stone was retrieved.
Recommendations:
-Etiology of symptoms with concern for gallstone pancreatitis-- CBD stone, sphincter of Chin dysfunction, vs other
US as noted with concern for CBD stone
She is status post ERCP with biliary sphincterotomy, sludge noted
LFTs, lipase trending down
Okay to advance to full liquid diet and then loose to diet as tolerated.
If doing well tomorrow, she can be discharged and follow-up with Dr. Bates in GI office in 8 weeks.
fatty liver noted new on US -- OP follow up to review
Subjective
Subjective
Date of Service: December 31, 2023
Patient without any abdominal pain, nausea or vomiting. No bowel movements today.
Objective
Data Reviewed
Laboratory Data:
Laboratory Results
12/31/23 06:10
12/31/23 06:10
Laboratory Results
APTT Cancelled 12/31/23 10:30
Total Bilirubin 0.6 mg/dl (0.2-1.3) D 12/31/23 06:10
AST 218 U/L (14-36) H 12/31/23 06:10
ALT 477 U/L (0-35) H 12/31/23 06:10
Alkaline Phosphatase 140 U/L (38-126) H 12/31/23 06:10
Lipase 489 U/L (23-300) H 12/31/23 06:10
Vital Signs and I&O:
Vital Signs
Temp Pulse Resp BP Pulse Ox
98.4 F 51 18 142/81 98
12/31/23 19:38 12/31/23 19:38 12/31/23 19:38 12/31/23 19:38 12/31/23 19:38
I&O
12/30/23 12/31/23 01/01/24
06:59 06:59 06:59
Intake Total 3091 / 3091 2580 / 2580
Balance 3091 / 3091 2580 / 2580
Physical Exam
Physical Exam
GI: Soft, Non Distended and Non Tender
[2023-12-31 23:20] VITALS: BP 119/89
[2024-01-01] MEDS: LR 1000 IV (01:32)
[2024-01-01 03:18] VITALS: BP 133/74
[2024-01-01 07:35] VITALS: BP 145/88
[2024-01-01] MEDS: VITAMIN D3 (cholecalciferol) 25 MCG PO (08:36)
[2024-01-01] MEDS: ELIQUIS 5 MG PO (08:36)
[2024-01-01] MEDS: LEXAPRO 20 MG PO (08:36)
[2024-01-01] MEDS: VITAMIN B-12 1000 MCG PO (08:36)
[2024-01-01] MEDS: PROTONIX 40 MG PO (08:36)
--- NOTE | 2024-01-01 08:52 | W.PN.HOSP.TC ---
Today's Communication/Plan
-
Discharge planning today.
Assessment / Plan
Assessment / Plan
Physical exam:
General: Well Developed, Well Nourished and No Apparent Distress
HEENT: Normocephalic, Atraumatic and Moist Mucous Membranes
Respiratory: Clear to Auscultation; Negative Wheezes, Rales or Rhonchi
Cardiac: Regular Rhythm and S1/S2
GI: Soft, Non tender and Nondistended
Musculoskeletal: No Clubbing, No Cyanosis and No Edema
Neuro: Awake, Alert and Oriented
Psych: Calm
A/P:
Impression:
Acute choledocholithiasis
Acute gallstone pancreatitis
Factor V Leiden on anticoagulation
Elevated LFTs--> trending down postprocedure
Fatty liver disease
Conditions prior to presentation:
Factor V Leiden
Recurrent pancreatitis
Depression anxiety
Status post cholecystectomy in the past
PLAN:
Tolerating full liquid diet and advancing to low residue diet today.
GI reached out to me and cleared her for discharge today.
Status post biliary sphincterotomy on 12/29 by GI. Biliary tree was swept and sludge was found but no stone.
Stop IV fluids
Oral PPI
Pain control
Hold off on antibiotics unless she develops fevers or any signs of infection.
Continue Eliquis
DVT prophylaxis on Eliquis
CODE STATUS full code
Anticipated Discharge: Today
Subjective/Interval History
-
Date of Service: January 01, 2024
Patient feels better overall today. No abdominal pain.
Objective Data
-
Labs:
Laboratory Results
01/01/24
08:47
Total Bilirubin Pending
AST Pending
ALT Pending
Alkaline Phosphatase Pending
Vital Signs:
Vital Signs
Temp Pulse Resp BP Pulse Ox
98.3 F 53 18 145/88 99
01/01/24 07:35 01/01/24 07:35 01/01/24 07:35 01/01/24 07:35 01/01/24 07:35
I&O
12/31/23 01/01/24 01/02/24
06:59 06:59 06:59
Intake Total 3091 / 3091 4260 / 4260
Balance 3091 / 3091 4260 / 4260
[2024-01-01] MEDS: LR IV (09:09)
[2024-01-01 10:15] LABS: ALT (SGPT) 340 U/L (0-35); AST (SGOT) 82 U/L (14-36); Albumin 3.4 g/dl (3.5-5.0); Alkaline Phosphatase 118 U/L (38-126); Direct Bilirubin 0.3 mg/dl (0.0-0.4); Total Bilirubin 0.5 mg/dl (0.2-1.3); Total Protein 5.9 g/dl (6.3-8.2)
[2024-01-01 11:02] VITALS: BP 136/81
--- NOTE | 2024-01-01 12:02 | W.DCSUMMARY ---
Discharge Summary
Discharge Data
Date of Admission: 12/29/23
Date of Discharge: 01/01/24
-
Pending Results: No
Hospital Course
Patient 43 years old female history of factor V Leiden, DVT, previous cholecystectomy, presented to the hospital abdominal pain and elevated LFTs. GI was consulted. Patient was kept n.p.o. and IV fluids given. Ultrasound concerns for CBD stone.
She underwent ERCP and she had mild biliary dilatation with biliary sphincterotomy and removal of sludge from the bile duct and cystic duct and gallbladder remnant appears to contain cholelithiasis. Overall it was felt that she had gallstone
pancreatitis. Her liver function test and lipase trended down. Abdominal pain resolved. She has been able to tolerate diet without any problems. She was initially placed on heparin drip due to procedures but then later on placed back on her
Eliquis and tolerated well. GI has cleared her for discharge. She will be discharged in stable condition today.
Discharge duration: 35 minutes
Discharge Plan
-
Patient Disposition: Home (Routine Discharge)
Discharge Diagnosis/Procedures: Abdominal pain with elevated liver function tests-Gallstone pancreatitis. Status post biliary sphincterotomy. History of factor V Leiden.
Diet: Low Cholesterol
Activity: As tolerated
Driving Restrictions: As prior to admission
Blood Work: Please PCP to order CBC, CMP within 1 week
Stand Alone Forms: Return to Work
Referrals:
Isidro Bates MD [Active] - in one to two weeks (follow up for recurrent abdominal pain. Also noted new fatty liver on Ultrasound. Work up and review outpatient )
Camelia Lucero CRNP [Family Provider] - in less than 1 week
Prescriptions:
Continued
escitalopram oxalate 20 MG tablet
20 mg PO DAILY
Eliquis 5 MG tablet
5 mg PO BID
pantoprazole [Protonix] 40 mg tablet,delayed release (DR/EC)
40 mg PO DAILY Qty: 30 0RF
cyanocobalamin (vitamin B-12) 1,000 mcg Tablet
1,000 mcg PO DAILY
cholecalciferol (vitamin D3) [Vitamin D3] 25 mcg (1,000 unit) Tablet
25 mcg PO DAILY
omega 1-mrf-epn-fish oil [Fish Oil] 1,000 mg (120 mg-180 mg) Capsule
1 cap PO DAILY
ferrous sulfate 325 mg (65 mg iron) Tablet
325 mg PO Q48H
Discharge Orders:
Discharge Patient (As Directed); Ordered 01/01/24
Ordered By: Shahbaz Harman
Discharge Date and Time
Discharge Date/Time: 01/01/24 13:42
Print Language: CZECH
--- NOTE | 2024-01-01 12:34 | CM ---
Patient has been medically cleared for discharge to home with no additional skilled services. Patient has arranged for transport home.
== END 2024-01-01 13:42 | disposition home or self-care (01) | DRG 439 ==
LOC: 2 NORTH 19:03
PROVIDERS: Nurse Practitioner Adult Health; Physician Assistant Medical; Radiology Diagnostic Radiology; ADMITTING PHYSICIAN Hospitalist; CONSULT PHYSICIAN Internal Medicine Gastroenterology; EMERGENCY PHYSICIAN Emergency Medicine; FAMILY PHYSICIAN Nurse Practitioner
PROC: BF111ZZ Fluoroscopy of Biliary and Pancreatic Ducts using Low Osmolar Contrast (ICD-10-PCS; 2023-12-30)
PROC: 0F798ZZ Dilation of Common Bile Duct, Via Natural or Artificial Opening Endoscopic (ICD-10-PCS; 2023-12-30)
DX: K85.10 Biliary acute pancreatitis without necrosis or infection (principal); D68.51 Activated protein C resistance; K80.50 Calculus of bile duct without cholangitis or cholecystitis without obstruction; K86.1 Other chronic pancreatitis; E78.00 Pure hypercholesterolemia, unspecified; F41.9 Anxiety disorder, unspecified; N28.1 Cyst of kidney, acquired; K76.0 Fatty (change of) liver, not elsewhere classified; K57.30 Diverticulosis of large intestine without perforation or abscess without bleeding; K21.9 Gastro-esophageal reflux disease without esophagitis; F32.A Depression, unspecified; N83.202 Unspecified ovarian cyst, left side; Z90.49 Acquired absence of other specified parts of digestive tract; Z86.718 Personal history of other venous thrombosis and embolism; Z79.01 Long term (current) use of anticoagulants; Z88.8 Allergy status to other drugs, medicaments and biological substances
CPT/HCPCS: 74330; 76000; 76700; 80053; 80076; 82248; 83690; 84703; 85025; 85027; 85730; 96361; 96374; 96375; 99285; C1769

== ENCOUNTER → 2024-12-08 13:53 | Outpatient (REF) | payer BC, SELFPAY | LOC: WDC 13:53 | PROVIDERS: ATTENDING PHYSICIAN Nurse Practitioner | DX: Z12.31 Encounter for screening mammogram for malignant neoplasm of breast (principal) | CPT/HCPCS: 77063; 77067 ==

== ENCOUNTER → 2025-05-31 09:42 | Outpatient (REF) | payer BC, SELFPAY | LOC: HWRAD 09:42 | PROVIDERS: ATTENDING PHYSICIAN Obstetrics & Gynecology; FAMILY PHYSICIAN Nurse Practitioner | DX: N92.1 Excessive and frequent menstruation with irregular cycle (principal) | CPT/HCPCS: 76830; 76856 ==

== ENCOUNTER 2025-07-24 07:40 | Day surgery (SDC) | payer BC, SELFPAY ==
[2025-07-24] VITALS (17 sets, daily range): BP systolic 98–120; BP diastolic 48–72; BMI 37.9
[2025-07-24] MEDS: TYLENOL 1000 MG PO (07:54)
[2025-07-24] MEDS: HEPARIN 5000 UNITS SC (07:55)
[2025-07-24] MEDS: NEURONTIN 300 MG PO (07:55)
[2025-07-24] MEDS: NORMOSOL-R/PLASMALYTE-A 1000 IV (07:55)
[2025-07-24] MEDS: DILAUDID 0.25 MG IV (10:34)
--- NOTE | 2025-07-24 10:39 | W.IMMPOSTOP ---
Surgical Immed Post Op Note
-
Primary Surgeon: Ofelia Cruz DO
Emt/Paramedic: RIA Pereira
Pre-op Diagnosis: Menorrhagia, dysmenorrhea
Post-op Diagnosis: same
Procedure Performed: robotic total laparoscopic hysterectomy, bilateral salpingectomy, lysis adhesions
Anesthesia Type: general ET Dr. Tellez
Specimen / Cultures: uterus, cervix, bilateral fallopian tubes
Estimated Blood Loss: 15ml
Urine output: 400ml clear yellow urine
IVF: 800ml crystalloid
Complications: none
Operative Findings: Normal sized uterus with normal appearing cervix and fallopian tubes. Left ovary with small 1cm simple cyst. Normal appearing right ovary. Adhesions extending from ascending colon to right abdominal wall just above pelvic brim.
Filmy adhesions along left round ligament.
Counts correct times 2.
[2025-07-24] MEDS: DILAUDID 0.5 MG IV ×3 (10:57→11:33)
[2025-07-24] MEDS: ZOFRAN 4 MG IV (14:09)
== END 2025-07-24 14:40 | disposition home or self-care (01) ==
LOC: SDS 07:40
PROVIDERS: ATTENDING PHYSICIAN Obstetrics & Gynecology
DX: D25.9 Leiomyoma of uterus, unspecified (principal); N72 Inflammatory disease of cervix uteri; N92.0 Excessive and frequent menstruation with regular cycle; N94.6 Dysmenorrhea, unspecified; N73.6 Female pelvic peritoneal adhesions (postinfective)
CPT/HCPCS: 58571; 86850; 86900; 86901; 88307